=== PATIENT | female | born 1950 | race Caucasian/White ===

== ENCOUNTER 2018-03-11 13:24 | Emergency (ER) | payer MEDICARE, MEDICAID, SELFPAY ==
[2018-03-11 13:24] VITALS: BP 138/78; PULSE 125; RESP 16; TEMP 36.9; O2SAT 98; BMI 25.3
--- NOTE | 2018-03-11 13:36 | CT_ITS ---
STUDY: CT ABDOMEN AND PELVIS WITHOUT CONTRAST REASON FOR EXAM: Female, 67 years old. Lower abdominal and back pain. RADIATION DOSAGE (If Supplied By Facility): CTDIvol = ( 8.08 ) mGy, DLP = ( 363.48 ) mGycm TECHNIQUE: Transaxial images were obtained from the dome of the diaphragm to the symphysis pubis without oral contrast, and without intravenous contrast. Sagittal and coronal images were reconstructed. Individualized dose optimization techniques were used for this CT. COMPARISON: Comparison is made with prior study dated July 27, 2012. FINDINGS: The visualized lung bases are unremarkable. The visualized portions of the heart are within normal limits. There is a 1.8 cm x 1.7 cm cyst in the anterior superior aspect of the right lobe of the liver. This essentially unchanged. A similar-appearing cyst is also seen along the anterior aspect of the right lobe of the liver along its mid axis measuring 2.9 cm x 2.4 cm. There are surgical clips in the gallbladder fossa consistent with a prior cholecystectomy. Normal spleen. Normal pancreas. Small bilateral adrenal adenomas. Each measure approximately 8 mm. This is unchanged. Normal right kidney. Normal left kidney. There is a small hiatal hernia. Normal small intestine. There are multiple colonic diverticula consistent with diverticulosis. The patient is status post cholecystectomy. There is diffuse atherosclerotic calcification of the abdominal aorta, without a demonstrated aneurysm. Normal inferior vena cava. Normal retroperitoneum. Normal urinary bladder. There is a small umbilical hernia containing fat. Disc space narrowing and disc degeneration at the L5-S1 level. CT/Abdomen/Pelvis without Cont IMPRESSION: Stable hepatic cysts. Sigmoid diverticulosis with no evidence of diverticulitis at this time. Findings suggestive of small bilateral adrenal adenomas. Electronically Signed: Grabiel Lange MD at 15:02 EDT Tel [phone], Service support ,
--- NOTE | 2018-03-11 13:36 | EKG12_ITS ---
Test Reason : ABNL PAIN Blood Pressure : / mmHG Vent. Rate : 112 BPM Atrial Rate : 112 BPM P-R Int : 168 ms QRS Dur : 080 ms QT Int : 338 ms P-R-T Axes : 046 -05 030 degrees QTc Int : 461 ms Sinus tachycardia Nonspecific ST abnormality Abnormal ECG Confirmed by TUTU ROMAN, KUSHAL ([id number]), editor greeting card CUCA BARROS ([id number]) on 03/17/2018 2:49:27 PM Referred By: ANJUM Confirmed By:KUSHAL CAM MD
[2018-03-11] MEDS: 0.9% Normal Saline 1,000 ML 1000 ML IV (13:59)
[2018-03-11] MEDS: Ondansetron 4 MG/2 ML Vial IV ×2 (13:59→15:18)
[2018-03-11] MEDS: Morphine 4 MG/ML Syringe IV (13:59)
[2018-03-11 14:13] LABS: Absolute Lymphocyte Count 2.39 X10^3/ul (0.83-4.51); Absolute Neutrophil Count 4.1 X10^3/uL (2.0-7.7); Basophil# 0.03 X10^3/uL; Basophil% 0.4 % (0-1); Eosinophil# 0.24 X10^3/uL; Eosinophils% 3.3 % (0-5); Hematocrit 41.6 % (37-47); Hemoglobin 13.1 g/dl (12.0-15.0); Lymphocyte # 2.39 X10^3/ul (4.0); Lymphocyte % 32.4 % (19-41); Mean Corp Hgb Conc 31.5 g/gl (32-36); Mean Corpuscular Hgb 29.3 pg (27.0-32.0); Mean Corpuscular Volume 93.1 fL (81-99); Mean Platelet Vol. 9.3 fl (6.2-12.0); Monocyte# 0.63 X10^3/uL; Monocyte% 8.5 % (0-10); Neutrophil # 4.08 X10^3/uL (2.7-7.7); Neutrophil % 55.3 % (47-70); POSITIVE COUNT NO; POSITIVE DIFFERENTIAL NO; POSITIVE MORPHOLOGY NO; Platelet Count 294 K/mm3 (150-450); RBC Distribution Width CV 13.2 % (11.6-14.6); Red Blood Count 4.47 M/mm3 (4.2-5.4); White Blood Count 7.4 K/mm3 (4.4-11.0)
[2018-03-11 14:24] LABS: Anion Gap 9 (5-15); BUN 15 mg/dL (7-18); BUN/Creat Ratio 18.5 RATIO (10-20); Calcium,Total 9.5 mg/dL (8.5-10.1); Chloride 106 mmol/L (98-107); Creatinine, Serum 0.81 mg/dL (0.55-1.02); EST Glomerular Filtration Rate 75 mL/min (>60); Est Glom Filt Rate - Afr Amer 90 mL/min (>60); Estimated Creatinine Clearance 50.16 ml/min; Glucose 112 mg/dL (74-106); Potassium 3.8 mmol/L (3.5-5.1); Sodium Level 141 mmol/L (136-145)
[2018-03-11 14:25] VITALS: BP 163/93; PULSE 98; RESP 23; O2SAT 100
[2018-03-11 15:07] LABS: Bacteria 0 SEEN /hpf (None Seen); Mucous, Urine 0 SEEN /hpf (<or=2+); Red Blood Cells-Urine 0 SEEN /hpf (0-5); White Blood Cells 0 SEEN /hpf (0-5)
[2018-03-11 15:11] LABS: Color, Urine Yellow (Yellow); Glucose, Dipstick Normal (Normal); Ketone-Dipstick 15 mg/dl (Negative); Leukocyte Esterase-Dipstick Negative /ul (Negative); Nitrite-Dipstick Negative (Negative); Occult Blood-Urine Negative /ul (Negative); Protein-Dipstick Negative (Negative); Specific Gravity, Urine 1.015 (1.002-1.030); Urine Bilirubin Dipstick Negative (Negative); Urine Clarity Clear (Clear); Urine Urobilinogen Normal (Normal)
[2018-03-11 15:22] LABS: Squamous Epithelial Cells - UA 0-5 SEEN /hpf (5-10)
[2018-03-11 16:08] VITALS: BP 113/69; PULSE 85; RESP 12; O2SAT 98
--- NOTE | 2018-03-11 16:11 | ED.DCSUM_ITS ---
- ER Visit Summary Date of Service: 03/11/18 Chief Complaint: [] History of Present Illness: The patient is a 67 F [] Physical Examination: [] Test Results: [] Emergency Department Course and Treatment: [] Treatment Plan: [] Disposition: [] Impression: [] This note was generated with [employer] software. It may contain incorrect words, spelling, and punctuation that were not noted in review of the chart prior to signing <Naldo Blevins - Last Filed: 03/11/18 16:38> - ER Visit Summary Date of Service: 03/11/18 This patient was evaluated by Dr Blevins in the emergency department. This note was generated with [employer] software. It may contain incorrect words, spelling, and punctuation that were not noted in review of the chart prior to signing <Tita Stokes - Last Filed: 03/12/18 00:17> ED Disposition <Naldo Blevins - Last Filed: 03/11/18 16:38> <Tita Stokes - Last Filed: 03/12/18 00:17> - Plan for ED Patient: Disposition: Home or Assisted Living Chief Complaint: Abd Pain Instructions: ED Neck Back Pain General Prescriptions: Ondansetron [Zofran Odt] 4 mg PO Q8H PRN PRN #10 tablet PRN Reason: Nausea Hydrocodone/Acetaminophen [[place] 5-325 Tablet] 1 - 2 each PO 4X/DAY PRN PRN 5 Days #20 tablet PRN Reason: Pain Referrals: [facility] [Primary Care Provider] - 3-5 Days if not improving
[2018-03-11] MEDS: proMETHazine 25 MG/ML Syringe 6.25 MG IV (16:15)
[2018-03-11 16:43] VITALS: BP 123/70; PULSE 85; RESP 18; O2SAT 99
--- NOTE | 2018-03-12 10:58 | ED.DCSUM_ITS ---
- ER Visit Summary Date of Service: 03/12/18 Chief Complaint: Back and pelvic pain History of Present Illness: The patient is a 67 F who [facility]. She reports that 10 days ago she was cleaning her kitchen and leaned forward and pain began in her lower back. She describes it as a burning sharp pain with radiation into her buttocks. She reports that over the next 10 days she is also developed suprapubic pain. She states pain is 10 out of 10 at worst and 7 out of 10 currently. Is worsened by movement and relieved by remaining still and ice. She denies any nausea or vomiting. Where she has chronic diarrhea that is unchanged and she has not had this today. No melena or hematochezia. No dysuria or frequency. No fever or chills. Patient denies any radiation of the pain into her legs. No groin numbness. No problems with her bowels or her bladder. No recent trauma. No fall, MVA, or change in activity. Physical Examination: Vitals: Stable. Afebrile. General: Well-nourished and well-developed. Head: Normocephalic atraumatic. Neck: Supple, no lymphadenopathy. No JVD. Nontender. Cardiovascular: Regular rate and rhythm. No murmurs. Respiratory: No respiratory distress. Clear to auscultation bilaterally. Abdominal: Soft, moderate suprapubic tenderness to palpation nondistended, normal bowel sounds. No guarding, rebound, or peritoneal signs. Back: Moderate tenderness palpation over the lumbar spine and paraspinous musculature in the lumbar region bilaterally. She is a negative straight leg raise bilaterally. 5 out of 5 dorsiflexion, plantarflexion, extensor hallucis longus bilaterally. Normal sensation to light touch. Extremities: Nontender, no edema. Skin: Normal color, no rash. Neurologic: Alert and oriented ?3. Cranial nerves II through XII are intact. Normal strength and sensation. Psych: Normal affect. Test Results: EKG is sinus tach 112 no acute changes. UA is negative. Chem-7 is more for glucose 112. CBC is normal. CT flank shows disc space narrowing and degenerative changes at L5/S1. Diverticulosis. Small bilateral adrenal adenomas that are unchanged since 2011. Emergency Department Course and Treatment: Patient was given a dose of morphine and Zofran IV. She became very nauseated from the morphine. She was also given Phenergan IV. Treatment Plan: Patient will be discharged on Zofran, [place], and [place]. Instructed to follow-up the [facility] in 3-5 days if not improving. Return to the emergency department for any worsening symptoms. Disposition: To home in improved and stable condition. Impression: 1. Back pain. 2. Abdominal pain, uncertain cause. This note was generated with [employer] dictation software. It may contain incorrect words, spelling, and punctuation that were not noted in review of the chart prior to signing ED Disposition - Plan for ED Patient: Disposition: Home or Assisted Living Chief Complaint: Abd Pain Instructions: ED Neck Back Pain General Prescriptions: Ondansetron [Zofran Odt] 4 mg PO Q8H PRN PRN #10 tablet PRN Reason: Nausea Hydrocodone/Acetaminophen [[place] 5-325 Tablet] 1 - 2 each PO 4X/DAY PRN PRN 5 Days #20 tablet PRN Reason: Pain [facility] - 3-5 Days if not improving
== END 2018-03-11 16:53 | disposition home or self-care (01) ==
LOC: ED 14:07
PROVIDERS: Emergency Provider Emergency Medicine
DX: M54.9 Dorsalgia, unspecified (principal); R10.9 Unspecified abdominal pain; R11.0 Nausea; T40.2X5A Adverse effect of other opioids, initial encounter; Y92.239 Unspecified place in hospital as the place of occurrence of the external cause; R19.7 Diarrhea, unspecified; E03.9 Hypothyroidism, unspecified; K58.9 Irritable bowel syndrome, unspecified; D35.02 Benign neoplasm of left adrenal gland; D35.01 Benign neoplasm of right adrenal gland; Z79.899 Other long term (current) drug therapy; Z87.19 Personal history of other diseases of the digestive system
CPT/HCPCS: 74176; 80048; 81001; 85025; 93005; 96361; 96374; 96375; 96376; 99284; J7030; A4216; J2405

== ENCOUNTER → 2020-12-11 09:06 | Outpatient (CLI) | payer MEDICARE, MEDICAID, SELFPAY ==
--- NOTE | 2020-12-11 09:11 | BI_ITS ---
MAMMOGRAPHY - BILATERAL DIAGNOSTIC REASON FOR EXAM: Female, 69 years old. Pain in the lower outer quadrant of the left breast. Occasional right lateral breast pain. PERTINENT HISTORY: Non-contributory. TECHNIQUE: Digital bilateral breast michael (3D mammographic acquisition) in the CC and MLO projections. 2-D mediolateral oblique (MLO) and craniocaudad (CC) views of both breasts were obtained. CAD: Full Field Digital Mammography with Computer Added Detection was performed. COMPARISON: Comparison is made with prior study dated 09/25/2016 and 11/26/2013. FINDINGS: Breast Composition: There are scattered areas of fibroglandular density. There are no dominant masses or suspicious calcifications. No other significant abnormalities are identified. There has been no significant change since the prior study. BI/DIAG MAMM W/CAD, BILAT IMPRESSION: Stable bilateral diagnostic mammogram. With the patient''s history of pain in the left breast, correlation with ultrasound is recommended. ASSESSMENT CATEGORY: BIRADS Category 0: Incomplete. Need additional imaging evaluation. A letter regarding these results will be sent to the patient by the facility within 30 days. Approximately 10% of breast cancers are not detected by mammography. A normal mammogram should not delay biopsy of a clinically suspicious abnormality. Electronically Signed: Grabiel Lange MD at 13:37 EDT , Service support ,
--- NOTE | 2020-12-11 09:39 | US_ITS ---
STUDY: ULTRASOUND BREAST - LEFT REASON FOR EXAM: Female, 69 years old. Left axillary breast pain. TECHNIQUE: Axial and longitudinal images of the LEFT breast were performed with a high resolution ultrasound transducer. # OF IMAGES: 44 COMPARISON: Comparison is made with prior mammogram done earlier in the day. FINDINGS: LEFT Breast: There are 2 lymph nodes are seen in the right axillary region. The larger lymph node measures 1.7 cm x 1.7 cm x 0.9 cm. US/Breast Limited Unilateral IMPRESSION: 2 lymph nodes are seen in the left axillary region. The largest lymph node measures 1.7 cm by 1.7 cm x 0.9 cm. ASSESSMENT CATEGORY: BIRADS Category 2: Benign. A letter regarding these results will be sent to the patient by the facility within 30 days. Electronically Signed: Grabiel Lange MD at 14:23 EDT , Service support ,
== END ==
DX: N64.4 Mastodynia (principal)
CPT/HCPCS: 76642; 77062; 77066; G0279

== ENCOUNTER → 2020-12-12 07:47 | Outpatient (CLI) | payer MEDICARE, MEDICAID, SELFPAY ==
[2020-12-14 16:09] LABS: Alkaline Phosphatase, Serum 140 IU/L (39-117); Bone Fraction 50 % (14-68); Liver Fraction 50 % (18-85)
[2020-12-15 13:08] LABS: Intestinal Fraction 0 % (0-18)
== END ==
DX: R73.03 Prediabetes (principal); E78.5 Hyperlipidemia, unspecified
CPT/HCPCS: 36415; 83036; 84075; 84080

== ENCOUNTER 2021-05-08 10:59 | Emergency (ER) | payer MEDICARE, MEDICAID, SELFPAY ==
[2021-05-08 11:01] VITALS: BP 142/83; PULSE 109; RESP 15; TEMP 35.9; O2SAT 99; BMI 26.5
--- NOTE | 2021-05-08 11:44 | CT_ITS ---
STUDY: CT ABDOMEN AND PELVIS WITH CONTRAST REASON FOR EXAM: Female, 70 years old. One month history of diffuse abdominal pain. RADIATION DOSAGE (If Supplied By Facility): CTDIvol = ( 10.96 ) mGy, DLP = ( 545.77 ) mGycm TECHNIQUE: Transaxial images were obtained from the dome of the diaphragm to the symphysis pubis without oral contrast. IV 100mL Isovue-300 was administered. Sagittal and coronal images were reconstructed. Individualized dose optimization techniques were used for this CT. COMPARISON: Comparison is made with prior study dated 03/11/2018. FINDINGS: The visualized lung bases are unremarkable. The visualized portions of the heart are within normal limits. 1.8 cm x 1.7 cm cyst in the anterior superior aspect of the right lobe of the liver. There is also evidence of a 2.9 sono by 2.9 cm cyst in the anterior midportion of the right lobe of the liver. There are surgical clips in the gallbladder fossa consistent with a prior cholecystectomy. Normal spleen. Normal pancreas. Stable small bilateral adrenal adenomas. Normal right kidney. Normal left kidney. Normal visualized stomach. Normal small intestine. There are multiple colonic diverticula consistent with diverticulosis. The appendix is visualized and appears normal. There is scattered atherosclerotic calcification of the abdominal aorta, without a demonstrated aneurysm. Normal inferior vena cava. Normal retroperitoneum. Normal urinary bladder. There is a small umbilical hernia containing fat. There are mild degenerative changes of the visualized lumbar spine. CT/Abdomen/Pelvis W IV Cont ONLY IMPRESSION: Stable hepatic cysts. Sigmoid diverticulosis. Electronically Signed: Grabiel Lange MD at 13:41 EDT , Service support ,
--- NOTE | 2021-05-08 11:45 | ED.VIS.GI ---
HPI HPI - GI History of Present Illness Chief Complaint: Abd Pain Informant: patient Abdominal Pain/Flank Pain Onset: Month(s) Context: Gradual Onset Timing: Intermittent Quality: Aching and Cramping Location: Diffuse Current Severity: Mild Maximum Severity: Mild Nausea/Vomiting/Emesis GI Symptom: Negative for Nausea and Vomiting Diarrhea/Melena/Hematochezia GI Symptom: Negative for Diarrhea, Melena and Hematochezia Associated Symptoms Associated Symptoms: Negative for Dysuria, Frequency and Hematuria Narrative Narrative: 70-year-old female history of irritable bowel. Prior cholecystectomy and one tube and one ovary removed. Patient states for the last month she has had diffuse abdominal pain. Worse with eating. Constipation that she takes laxatives for. Denies any dysuria. No fever or chills. No weight loss. Prior similar symptoms: Yes PFSH [facility] Medical History (Updated 05/08/21 @ 13:[address] Ramiro Marquez MD) Cholecystectomy planned Home Medications dicyclomine 20 mg PO DAILY 03/11/18 [History Last Taken Unknown] ergocalciferol (vitamin D2) [Vitamin D] 50,000 unit PO Q7D 03/11/18 [History Last Taken Unknown] hydrocodone-acetaminophen [[place] 5-325 Tablet] 1 - 2 ea PO 4X/DAY PRN PRN 5 Days #20 tab 03/11/18 [Rx Last Taken Unknown] rdagr-pr-[id number]-zva-sxp-gsqqjec-ast [Krill Oil 500 mg Softgel] 1 ea PO DAILY 03/11/18 [History Last Taken Unknown] levothyroxine 50 mcg PO DAILY 03/11/18 [History Last Taken Unknown] ondansetron 4 mg PO Q8H PRN PRN #10 tab 03/11/18 [Rx Last Taken Unknown] psyllium husk [Fiber] 0.4 g PO DAILY 03/11/18 [History Last Taken Unknown] Allergy/AdvReac Type Severity Reaction Status Date / Time diphenhydramine HCl Allergy Anaphylaxis Verified 05/08/21 11:00 [From Benadryl] Penicillins [PCN] Allergy Other Verified 05/08/21 11:01 morphine AdvReac Other Verified 05/08/21 11:01 Social History Smoking Status: Never smoker ROS ROS ED ROS Narrative Abdominal pain, constipation. Review of Systems ROS Unobtainable: Denies due to encephalopathy Constitutional Constitutional ED: Denies chills or fever(s) ENT ENT ED: Denies ear pain Cardiovascular Cardiovascular: Denies chest pain Respiratory/Chest Respiratory/Chest: Denies cough or dyspnea Gastrointestinal Gastrointestinal: Reports abdominal pain and constipation; Denies diarrhea, melena, nausea or vomiting Genitourinary Genitourinary ED: Denies dysuria or hematuria Musculoskeletal Musculoskeletal: Denies myalgias Integumentary Denies rash Neurologic Neurologic: Denies headache(s) Psychiatric Psychiatric: Denies depression Endocrine Endocrinology: Denies polyuria Hematologic/Lymphatic Hematologic/Lymphatic: Denies easy bruising Allergic/Immunologic Allergic/Immunologic ED: Denies urticaria EXAM Physical Exam Narrative Exam Narrative: Well-appearing older female no acute distress. Vital signs stable afebrile. Abdomen soft nondistended normal bowel sounds no peritoneal signs. Moving all 4 extremities. No edema. Lungs are clear. Heart regular rate and rhythm. Const Vital Signs: 05/08/21 11:01 Temperature 96.7 F L Temperature Source Temporal Pulse Rate 109 H Respiratory Rate 15 Blood Pressure 142/83 H Blood Pressure Mean 102 Pulse Ox 99 Oxygen Delivery Method Room Air Positive well nourished and well developed; Negative for obese, cachectic, contractures or unkempt General Appearance ED: well developed and NAD; Negative for unkempt, cachectic, contractures or pallor Nutritional Appearance: Negative for cachectic or obese HEENT Reports moist mucous membranes normocephalic; Negative for trauma or tenderness Eyes PERRL and EOMs intact bilaterally Neck no lymphadenopathy, supple and no JVD General: Negative for tenderness Resp normal respiratory effort and clear to auscultation bilaterally Auscultation: Negative for rales, rhonchi or wheezes Cardio regular rate, regular rhythm, S1 normal heart sound, S2 normal heart sound and no murmurs GI non-distended and no masses; Negative for non-tender Inspection: Negative for abdominal distention Auscultation: normoactive bowel sounds; Negative for hyperactive bowel sounds or hypoactive bowel sounds Palpation: soft and tender; Negative for guarding, rigid or rebound tenderness present Back/Spine no CVA tenderness Extremity full ROM General Extremety ED: Negative for edema or tenderness General Extremity: Negative for edema Neuro moves all extremities Sensorium / Orientation: alert, oriented to person, oriented to place and oriented to time Motor Exam: strength 5/5 throughout Psych mental status grossly normal Appearance: Negative for unkempt Skin no wounds General Skin Exam: Negative for jaundice or pallor Lesions: no lesions Rashes: no rashes MDM MDM MDM Narrative Medical decision making narrative: Female history of irritable bowel with diffuse abdominal pain. CAT scan labs pending. Exam benign. Repeat exam patient is doing well at 1:48 PM. She and I went over test results. She will be discharged home. Outpatient follow-up. Lab Data Attestation: I reviewed the patient's lab results. Lab results narrative: White count of 6. Hemoglobin 14. Electrolytes show a gap of 3 normal creatinine. Normal liver enzymes. Alk phos elevated at 142. Lipase normal at 134. UA normal no signs of infection. No white cells. No nitrates nor bacteria. CAT scan of the abdomen pelvis showed chronic findings nothing acute. Labs: Laboratory Results - last 24 hr 05/08/21 05/08/21 05/08/21 12:20 12:20 12:40 WBC 6.3 RBC 4.77 Hgb 14.1 Hct 44.5 MCV 93.3 MCH 29.6 MCHC 31.7 L RDW Std Deviation 43.8 RDW Coeff of Rea 12.7 Plt Count 297 MPV 9.0 Immature Gran % (Auto) 0.600 Neut % (Auto) 63.2 Lymph % (Auto) 26.3 [place] % (Auto) 7.7 Eos % (Auto) 1.7 Baso % (Auto) 0.5 Absolute Neuts (auto) 4.0 Absolute Lymphs (auto) 1.67 Nucleated RBC % 0 Sodium 141 Potassium 4.0 Chloride 107 Carbon Dioxide 31.0 Anion Gap 3 L BUN 7 Creatinine 0.61 Estim Creat Clear Calc 37.06 Est GFR (MDRD) Af Amer 124 Est GFR (MDRD) Non-Af 102 BUN/Creatinine Ratio 11.4 Glucose 99 Calcium 9.8 Total Bilirubin 0.40 AST 17 ALT 23 Alkaline Phosphatase 142 H Total Protein 8.0 Albumin 3.7 Globulin 4.3 H Albumin/Globulin Ratio 0.9 Lipase 134 Urine Color Straw Urine Clarity Clear Urine pH 8.0 Ur Specific [place] 1.010 Urine Protein Negative Urine Glucose (UA) Normal Urine Ketones Negative Urine Occult Blood Negative Urine Nitrite Negative Urine Bilirubin Negative Urine Urobilinogen Normal Ur Leukocyte Esterase Negative Urine RBC 0 SEEN Urine WBC 0 SEEN Ur Squamous Epith Cells 0-5 SEEN Urine Bacteria 0 SEEN Urine Mucus 0 SEEN Radiography Diagnostic Testing: Radiology Impression Abdomen/Pelvis CT 05/08/21 11:44 IMPRESSION: Stable hepatic cysts. Sigmoid diverticulosis. Electronically Signed: Grabiel Lange MD at 13:41 EDT , Service support , Discharge Plan Triage Chief Complaint: Abd Pain ED Provider: Ramiro Marquez Dx/Rx/DC Orders Clinical Impression: History of irritable colon Instructions: ED Irritable Bowel Syndrome Prescriptions: No Action dicyclomine 20 MG tablet 20 mg PO DAILY RF: 0 levothyroxine 50 MCG tablet 50 mcg PO DAILY RF: 0 ergocalciferol (vitamin D2) [Vitamin D2] 50,000 UNIT capsule 50,000 unit PO Q7D RF: 0 zxrcj-id-3-mqr-mqu-fxjvdnz-ast [krill oil] 1 EACH capsule 1 ea PO DAILY RF: 0 psyllium husk [Fiber (psyllium husk)] 0.4 GM capsule 0.4 g PO DAILY RF: 0 hydrocodone-acetaminophen [[place]] 1 EACH tablet 1 - 2 ea PO 4X/DAY PRN PRN (Reason: Pain) 5 Days Qty: 20 RF: 0 ondansetron 4 MG tablet 4 mg PO Q8H PRN PRN (Reason: Nausea) Qty: 10 RF: 0 Primary Care Provider: Anay Guzmán Referrals: [facility] Anay Ortiz [Primary Care Provider] - 1 Week if not improving Activity Restrictions/Additional Instructions: Plenty of fluids and rest. Tylenol for pain. Plenty of fiber to help decrease the constipation. Your test today were unremarkable as was your CAT scan. Follow-up with your primary care provider as needed. Disposition Disposition: Home, Self Care
[2021-05-08 12:31] LABS: Absolute Lymphocyte Count 1.67 X10^3/uL (0.83-4.51); Basophil# 0.03 X10^3/uL; Basophil% 0.5 % (0-1); Eosinophil# 0.11 X10^3/uL; Eosinophils% 1.7 % (0-5); Hematocrit 44.5 % (37-47); Hemoglobin 14.1 g/dL (12.0-15.0); Lymphocyte # 1.67 X10^3/ul (0.83-4.51); Lymphocyte % 26.3 % (19-41); Mean Corp Hgb Conc 31.7 g/dL (32-36); Mean Corpuscular Hgb 29.6 pg (27.0-32.0); Mean Corpuscular Volume 93.3 fL (81-99); Monocyte# 0.49 X10^3/uL; Monocyte% 7.7 % (0-10); NRBC Flagged by Analyzer 0 % (0-5); Neutrophil % 63.2 % (47-70); Platelet Count 297 K/mm3 (150-450); RBC Distribution Width CV 12.7 % (11.6-14.6); RBC Distribution Width SD 43.8 fl (35.1-43.9); Red Blood Count 4.77 M/mm3 (4.2-5.4); White Blood Count 6.3 K/mm3 (4.4-11.0)
[2021-05-08] MEDS: 0.9% Normal Saline 1,000 ML 1000 ML IV (12:39)
[2021-05-08 12:45] LABS: Bacteria 0 SEEN /hpf (None Seen); Mucous, Urine 0 SEEN /hpf (<or=2+); Red Blood Cells-Urine 0 SEEN /hpf (0-5); White Blood Cells 0 SEEN /hpf (0-5)
[2021-05-08 12:46] LABS: ALB/GLOB Ratio 0.9 RATIO (0.9-2.4); AST(SGOT) 17 U/L (15-37); Alanine Aminotransfer ALT/SGPT 23 U/L (13-56); Albumin, Serum 3.7 g/dL (3.2-5.0); Alkaline Phosphatase 142 U/L (45-117); Anion Gap 3 (5-15); BUN 7 mg/dL (7-18); BUN/Creat Ratio 11.4 RATIO (10-20); Calcium,Total 9.8 mg/dL (8.5-10.1); Chloride 107 mmol/L (98-107); Creatinine, Serum 0.61 mg/dL (0.55-1.02); EST Glomerular Filtration Rate 102 mL/min (>60); Est Glom Filt Rate - Afr Amer 124 mL/min (>60); Estimated Creatinine Clearance 37.06 ml/min; Globulin 4.3 g/dL (2.2-4.2); Glucose 99 mg/dL (74-106); Lipase 134 U/L (73-393); Sodium Level 141 mmol/L (136-145)
[2021-05-08 12:47] LABS: Color, Urine Straw (Yellow); Glucose, Dipstick Normal (Normal); Ketone-Dipstick Negative (Negative); Leukocyte Esterase-Dipstick Negative /ul (Negative); Nitrite-Dipstick Negative (Negative); Occult Blood-Urine Negative /ul (Negative); Protein-Dipstick Negative (Negative); Urine Bilirubin Dipstick Negative (Negative); Urine Clarity Clear (Clear); Urine Urobilinogen Normal (Normal)
[2021-05-08 12:58] LABS: Squamous Epithelial Cells - UA 0-5 SEEN /hpf (5-10)
== END 2021-05-08 13:59 | disposition home or self-care (01) ==
PROVIDERS: Emergency Provider Emergency Medicine
DX: Z87.19 Personal history of other diseases of the digestive system (principal); R10.9 Unspecified abdominal pain
CPT/HCPCS: 74177; 80053; 81001; 83690; 85025; 99283; J7030; Q9967

== ENCOUNTER 2021-06-09 11:22 | Observation (INO) | payer MEDICARE, MEDICAID, SELFPAY ==
[2021-06-09] VITALS (20 sets, daily range): BP systolic 119–131; BP diastolic 60–83; PULSE 69–122; RESP 16–23; TEMP 36.2–37.7; O2SAT 92–100; BMI 25.4; BMI 24.9
--- NOTE | 2021-06-09 11:43 | EKG12_ITS ---
Test Reason : Blood Pressure : / mmHG Vent. Rate : 141 BPM Atrial Rate : 153 BPM P-R Int : 000 ms QRS Dur : 078 ms QT Int : 298 ms P-R-T Axes : 000 -10 -61 degrees QTc Int : 456 ms Atrial fibrillation with premature ventricular or aberrantly conducted complexes Nonspecific ST and T wave abnormality , probably digitalis effect Abnormal ECG Confirmed by TUTU ROMAN, KUSHAL ([id number]), news video editor DARIN BALES ([id number]) on 06/12/2021 9:40:21 AM Referred By: BRODIE Confirmed By:KUSHAL CAM MD
--- NOTE | 2021-06-09 11:45 | EDS_ITS ---
HPI History of Present Illness Chief Complaint: Shortness of Breath Informant: patient Narrative Narrative: Patient presents with multiple complaints and not feeling well. This started all about 2 weeks ago. She started with some aches and headaches. She had coughing. She has never had sputum production. She states her appetite was down. She lost her taste and smell but feels that those are actually coming back now. She has generalized malaise. What brought her in today is that her heart rate is going up and down and she has generalized malaise. Her symptoms are not getting better. She has not had chest pain. She gets some abdominal pain off and on but she has a long history of irritable bowel syndrome and this is similar to that. She is not vomiting. She is not having diarrhea. Nothing is really making her symptoms better or worse. She has not been seen for these. She is taking her Synthroid and it was last checked about 2 months ago she believes. Past medical history: Hypothyroidism, irritable bowel syndrome Medications: Levothyroxine Allergies: Benadryl, penicillins and morphine Surgeries: Cholecystectomy appendectomy and unilateral salpingo-oophorectomy Non-smoker lives independently [facility] Medical History (Updated 06/09/21 @ 14:[address] Venancio Allen MD) Cholecystectomy planned Hypothyroidism Home Medications dicyclomine 20 mg PO DAILY 03/11/18 [History Last Taken Unknown] ergocalciferol (vitamin D2) [Vitamin D] 50,000 unit PO Q7D 03/11/18 [History Last Taken Unknown] hydrocodone-acetaminophen [[place] 5-325 Tablet] 1 - 2 ea PO 4X/DAY PRN PRN 5 Days #20 tab 03/11/18 [Rx Last Taken Unknown] mnavt-zm-[id number]-qrq-kgg-hjodxxe-ast [Krill Oil 500 mg Softgel] 1 ea PO DAILY 03/11/18 [History Last Taken Unknown] levothyroxine 50 mcg PO DAILY 03/11/18 [History Last Taken Unknown] ondansetron 4 mg PO Q8H PRN PRN #10 tab 03/11/18 [Rx Last Taken Unknown] psyllium husk [Fiber] 0.4 g PO DAILY 03/11/18 [History Last Taken Unknown] Allergy/AdvReac Type Severity Reaction Status Date / Time diphenhydramine HCl Allergy Anaphylaxis Verified 05/08/21 11:00 [From Benadryl] Penicillins [PCN] Allergy Other Verified 05/08/21 11:01 morphine AdvReac Other Verified 05/08/21 11:01 Social History Smoking Status: Never smoker ROS ROS ED Constitutional Constitutional ED: Reports chills; Denies weight loss Eyes Eyes: Denies blurry vision or change in vision ENT ENT ED: Reports rhinorrhea; Denies ear pain or sore throat Cardiovascular Cardiovascular: Reports palpitations and racing heartbeat; Denies chest pain Respiratory/Chest Respiratory/Chest: Reports cough and dyspnea; Denies sputum Gastrointestinal Gastrointestinal: Reports abdominal pain; Denies diarrhea, nausea or vomiting Genitourinary Genitourinary ED: Denies dysuria or hematuria Musculoskeletal Musculoskeletal: Reports myalgias Integumentary Denies rash Neurologic Neurologic: Reports headache(s); Denies paresthesias or weakness Endocrine Endocrinology: Denies polydipsia or polyuria Hematologic/Lymphatic Hematologic/Lymphatic: Denies easy bleeding or easy bruising Allergic/Immunologic Allergic/Immunologic ED: Denies urticaria EXAM Physical Exam Const Vital Signs: 06/09/21 11:23 06/09/21 11:27 06/09/21 12:04 Temperature 97.2 F L 97.2 F L Temperature Source Temporal Temporal Pulse Rate 122 H 96 Respiratory Rate 18 16 Respiratory Effort Respiratory Depth Respiratory Pattern Blood Pressure 122/67 H 119/83 H Blood Pressure Mean 85 95 Pulse Ox 92 96 96 Oxygen Delivery Method Room Air Room Air Room Air 06/09/21 12:06 06/09/21 12:12 06/09/21 12:24 Temperature Temperature Source Pulse Rate 96 96 Respiratory Rate 23 H 16 Respiratory Effort Normal Non-Labored Respiratory Depth Normal Respiratory Pattern Normal Blood Pressure 119/83 H 119/83 H Blood Pressure Mean 95 95 Pulse Ox 94 96 Oxygen Delivery Method Room Air Room Air Room Air 06/09/21 12:27 06/09/21 13:16 06/09/21 13:30 Temperature 97.2 F L Temperature Source Temporal Pulse Rate 96 108 H 95 Respiratory Rate 16 19 H 20 H Respiratory Effort Respiratory Depth Respiratory Pattern Blood Pressure 119/83 H 120/83 H 120/83 H Blood Pressure Mean 95 95 95 Pulse Ox 96 100 95 Oxygen Delivery Method Room Air Room Air Room Air Positive well nourished and well developed General Appearance ED: well developed and NAD HEENT Reports dry mucous membranes Mouth ED: Yes dry mucous membranes Mouth: dry mucous membranes Eyes General Eye ED: Negative for pale conjunctiva or scleral icterus Neck no meningeal signs and no JVD Resp normal respiratory effort Resp Narrative: Patient does have some coarse breath sounds bilaterally. No wheezing. Auscultation: rhonchi Cardio Cardio Narrative: Patient is to be in atrial fibrillation with rapid response. Her rate varies between about 110 and 150. Rate: tachycardic Rhythm: abnormal rhythm GI non-tender, non-distended and no masses Auscultation: normoactive bowel sounds Palpation: soft Back/Spine no CVA tenderness Extremity normal to inspection Extremity Narrative: Patient also denies any recent travel, surgery, immobilization, personal or family history of DVT or PE. General Extremety ED: Negative for edema or tenderness General Extremity: Negative for edema Neuro oriented x3 Sensorium / Orientation: alert Psych mental status grossly normal Skin Lesions: no lesions Rashes: no rashes MDM MDM MDM Narrative Medical decision making narrative: Patient's blood work shows essentially normal CBC. Electrolytes show minimally low potassium. I will replace this orally. TSH was just minimally elevated. I did a CT scan of her chest with her dyspnea new onset A. fib recent and positive Covid. This did not show pulmonary embolus. With her new onset A. fib, rapid ventricular rates she will be kept in the hospital. Her rate actually came down before we gave metoprolol. I discussed case with hospitalist. Lab Data Attestation: I reviewed the patient's lab results. Labs: Laboratory Results - last 24 hr 06/09/21 06/09/21 11:37 11:37 WBC 9.2 RBC 4.70 Hgb 13.5 Hct 43.4 MCV 92.3 MCH 28.7 MCHC 31.1 L RDW Std Deviation 44.1 H RDW Coeff of Rea 13.0 Plt Count 347 MPV 9.3 Immature Gran % (Auto) 1.300 H Neut % (Auto) 80.5 H Lymph % (Auto) 8.7 L [place] % (Auto) 9.1 Eos % (Auto) 0.2 Baso % (Auto) 0.2 Absolute Neuts (auto) 7.4 Absolute Lymphs (auto) 0.80 L Nucleated RBC % 0 Sodium 139 Potassium 3.0 L Chloride 99 Carbon Dioxide 33.0 H Anion Gap 7 BUN 10 Creatinine 0.77 Estim Creat Clear Calc 38.94 Est GFR (MDRD) Af Amer 95 Est GFR (MDRD) Non-Af 78 BUN/Creatinine Ratio 13.0 Glucose 123 H Calcium 9.1 Magnesium 1.9 Troponin I High Sens 6 TSH 4.09 H Radiography Diagnostic Testing: Clinical Impression(s) from Imaging Studies Chest X-Ray 06/09/21 12:21 IMPRESSION: Bilateral pneumonia. Electronically Signed: Elver Simpson MD at 12:56 EDT Tel , Service support , Chest CTA 06/09/21 12:38 IMPRESSION: 1. No CT evidence of pulmonary embolism. 2. Bilateral subsegmental atelectasis or pneumonitis. Commonly reported imaging features of Covid 19 pneumonia are present. Other processes such as influenza pneumonia and organizing pneumonia from drug toxicity or connective tissue disease can cause a similar imaging pattern Electronically Signed: Elver Simpson MD at 13:38 EDT Tel , Service support , EKG Initial EKG: Comments: EKG done for tachycardia and read by me shows atrial fibrillatio n with a rate of 141. No ventricular ectopy. There are some mild diffuse nonspecific ST and T wave changes. Some of these were seen on prior EKG even though she did not have A. fib at that time. No indication of ST elevation [place]. QRS duration and QTc are normal. This overall is a change with a new rhythm since 11 March 2018. Discharge Plan Triage Chief Complaint: Shortness of Breath ED Provider: Venancio Allen Dx/Rx/DC Orders Clinical Impression: Pneumonia due to 2019 novel coronavirus, Atrial fibrillation, new onset Prescriptions: No Action dicyclomine 20 MG tablet 20 mg PO DAILY RF: 0 levothyroxine 50 MCG tablet 50 mcg PO DAILY RF: 0 ergocalciferol (vitamin D2) [Vitamin D2] 50,000 UNIT capsule 50,000 unit PO Q7D RF: 0 vmwfi-di-9-avd-aam-bztepxe-ast [krill oil] 1 EACH capsule 1 ea PO DAILY RF: 0 psyllium husk [Fiber (psyllium husk)] 0.4 GM capsule 0.4 g PO DAILY RF: 0 hydrocodone-acetaminophen [[place]] 1 EACH tablet 1 - 2 ea PO 4X/DAY PRN PRN (Reason: Pain) 5 Days Qty: 20 RF: 0 ondansetron 4 MG tablet 4 mg PO Q8H PRN PRN (Reason: Nausea) Qty: 10 RF: 0 Primary Care Provider: [facility] Anay Ortiz Referrals: [facility] Anay Ortiz [Primary Care Provider] - Disposition Disposition: Acute Care Hospital [facility]
[2021-06-09 12:11] LABS: Absolute Neutrophil Count 7.4 X10^3/uL (2.0-7.7); Basophil# 0.02 X10^3/uL; Basophil% 0.2 % (0-1); Eosinophil# 0.02 X10^3/uL; Eosinophils% 0.2 % (0-5); Hematocrit 43.4 % (37-47); Hemoglobin 13.5 g/dL (12.0-15.0); Lymphocyte % 8.7 % (19-41); Mean Corp Hgb Conc 31.1 g/dL (32-36); Mean Corpuscular Hgb 28.7 pg (27.0-32.0); Mean Corpuscular Volume 92.3 fL (81-99); Mean Platelet Vol. 9.3 fl (6.2-12.0); Monocyte# 0.84 X10^3/uL; Monocyte% 9.1 % (0-10); NRBC Flagged by Analyzer 0 % (0-5); Neutrophil # 7.42 X10^3/uL (2.7-7.7); Neutrophil % 80.5 % (47-70); Platelet Count 347 K/mm3 (150-450); RBC Distribution Width SD 44.1 fl (35.1-43.9); White Blood Count 9.2 K/mm3 (4.4-11.0)
--- NOTE | 2021-06-09 12:21 | RAD_ITS ---
STUDY: X-RAY CHEST REASON FOR EXAM: Female, 70 years old. chest pain TECHNIQUE: Single AP portable view of the chest. COMPARISON: None. FINDINGS: Patchy alveolar opacities in both lungs consistent with bilateral pneumonia. There is no demonstrated pleural abnormality. Normal size heart. Normal mediastinum and sophie. Normal visualized pulmonary arteries. Normal visualized aortic arch and descending thoracic aorta. Normal visualized thoracic spine. Normal visualized ribs, clavicles, and shoulders. There is no demonstrated abnormality of the visualized soft tissue structures of the upper abdomen. RAD/Chest 1 View (Portable) IMPRESSION: Bilateral pneumonia. Electronically Signed: Elver Simpson MD at 12:56 EDT Tel , Service support ,
[2021-06-09 12:31] LABS: Anion Gap 7 (5-15); BUN 10 mg/dL (7-18); Calcium,Total 9.1 mg/dL (8.5-10.1); Chloride 99 mmol/L (98-107); Creatinine, Serum 0.77 mg/dL (0.55-1.02); EST Glomerular Filtration Rate 78 mL/min (>60); Est Glom Filt Rate - Afr Amer 95 mL/min (>60); Estimated Creatinine Clearance 38.94 ml/min; Glucose 123 mg/dL (74-106); Magnesium 1.9 mg/dL (1.6-2.6); Sodium Level 139 mmol/L (136-145); Thyroid Stim Hormone (TSH) 4.09 uIU/mL (0.358-3.74); Troponin-I HS 6 pg/mL (3.0-54.0)
--- NOTE | 2021-06-09 12:38 | CT_ITS ---
STUDY: CTA CHEST REASON FOR EXAM: Female, 70 years old. SOB, tachycardia RADIATION DOSAGE (If Supplied By Facility): CTDIvol = ( 6.17 ) mGy, DLP = ( 143.33 ) mGycm TECHNIQUE: The examination was performed with the intravenous administration of IV 100mL Isovue-370. Post-processing of the angiographic images was performed, with multiplanar reformation and 3D reconstruction. Individualized dose optimization techniques were used for this CT. COMPARISON: Chest x-ray earlier today FINDINGS: Normal enhancement of the main pulmonary artery and right and left pulmonary arteries. Normal enhancement of the bilateral peripheral pulmonary arteries. There is no demonstrated pulmonary embolism. Normal thoracic aorta and visualized great vessels. There is no demonstrated aortic dissection. Normal heart and pericardium. Normal mediastinum. Normal hilar regions. Normal visualized trachea and bronchi. The lungs are well expanded. Bilateral peripheral patchy groundglass opacities consistent with subsegmental atelectasis or pneumonitis.. Normal pleura. Normal chest wall structures. Normal osseous structures. Status post cholecystectomy. 3 cm cyst in the medial segment left lobe of the liver. CT/CTA Chest W/WO Contrast IMPRESSION: 1. No CT evidence of pulmonary embolism. 2. Bilateral subsegmental atelectasis or pneumonitis. Commonly reported imaging features of Covid 19 pneumonia are present. Other processes such as influenza pneumonia and organizing pneumonia from drug toxicity or connective tissue disease can cause a similar imaging pattern Electronically Signed: Elver Simpson MD at 13:38 EDT Tel , Service support ,
--- NOTE | 2021-06-09 13:59 | HP.PCM.HOS_ITS ---
HPI - General General Date of Admission: 06/09/21 Date of Service: 06/09/21 Chief Complaint: Worsening COVID symptoms, dyspnea HPI Narrative The patient is a 70 y/o F w/ PMHx: Hypothyroidism who presents to the [facility] ED on 06/09/21 with history of onset COVID type symptoms 2 weeks prior to current presentation with subjective mild chills, no specific fevers, fatigue, malaise, cough, dyspnea, loss of smell and taste, headaches, body aches, nausea with emesis x 1 with abdominal discomfort but no diarrhea in addition to new onset vacillating heart rate and worsening fatigue prompting ED evaluation. Patient is not vaccinated against COVID-19. Patient's also feels poorly and was evaluated in the ED on the same day but will be discharged home per discussion with ED physician. Work-up in the ED included T 97.2, heart rate vacillating between 90s and 150s, BP 122/67, respiratory rate ranging from 16-23, oxygenation initially 95-100%, however on evaluation was decreasing to 92-94% on monitor with good wave form therefore will be considered severe COVID infection, CBC with WC 9.2, hemoglobin 13.5, platelet 347 with mildly increased immature granulocytes with lymphopenia, BMP with potassium 3.0, carbon oxide 33, glucose 123, magnesium 1.9, cardiac troponin 6, TSH 4.09, EKG with new onset atrial fibrillation with RVR with rate up to 150s, rapid Covid antigen positive, chest x-ray with bilateral pneumonia, CTPA with no evidence of PE, bilateral subsegmental atelectasis or pneumonitis consistent with COVID-19 pneumonia. In the ED patient administered potassium supplementation 40 mEq x 1. [facility] Medical History (Updated 06/09/21 @ 14:[address] Edna Traylor MD) History of irritable colon Hypothyroidism Home Medications dicyclomine 20 mg PO DAILY 03/11/18 [History Last Taken Unknown] ergocalciferol (vitamin D2) [Vitamin D] 50,000 unit PO Q7D 03/11/18 [History Last Taken Unknown] hydrocodone-acetaminophen [[place] 5-325 Tablet] 1 - 2 ea PO 4X/DAY PRN PRN 5 Days #20 tab 03/11/18 [Rx Last Taken Unknown] vwieb-nd-8-tiy-oeh-zqrlqnc-ast [Krill Oil 500 mg Softgel] 1 ea PO DAILY 03/11/18 [History Last Taken Unknown] levothyroxine 50 mcg PO DAILY 03/11/18 [History Last Taken Unknown] ondansetron 4 mg PO Q8H PRN PRN #10 tab 03/11/18 [Rx Last Taken Unknown] psyllium husk [Fiber] 0.4 g PO DAILY 03/11/18 [History Last Taken Unknown] Allergy/AdvReac Type Severity Reaction Status Date / Time diphenhydramine HCl Allergy Anaphylaxis Verified 05/08/21 11:00 [From Benadryl] Penicillins [PCN] Allergy Other Verified 05/08/21 11:01 morphine AdvReac Other Verified 05/08/21 11:01 Family History (Updated 06/09/21 @ 14:[address] Edna Traylor MD) Father Hypertension COPD (chronic obstructive pulmonary disease) other (Notes mother secondary to bacteremia associated w/ Cholecystitis and attempted surgery.) Surgical History (Updated 06/09/21 @ 14:[address] Edna Traylor MD) H/O unilateral salpingectomy History of unilateral oophorectomy S/P appendectomy S/P cholecystectomy Social History (Updated 06/09/21 @ 14:[address] Edna Traylor MD) household members: spouse Smoking Status: Never smoker alcohol intake: never substance use type: does not use ROS ROS Narrative Admission Review of Systems: CONSTITUTIONAL: No weight loss, fever, + chills, weakness or fatigue. HEENT: + [place], decreased taste/smell, congestion, sore throat. Eyes: No visual loss, blurred vision, double vision or yellow sclerae. Ears, Nose, Throat: No hearing loss, sneezing. SKIN: No rash or itching, lesions, wounds. CARDIOVASCULAR: No chest pain, chest pressure or chest discomfort, palpitations, edema, orthopnea, syncopal events. RESPIRATORY: + shortness of breath, cough without sputum, No wheezing, hemoptysis. GASTROINTESTINAL: + anorexia, nausea, vomiting, abdominal discomfort, No melena, BRBPR. GENITOURINARY: No dysuria, frequency, urgency or retention. NEUROLOGICAL: + headache, No dizziness, syncope, paralysis, ataxia, numbness or tingling in the extremities, focal weakness, change in bowel or bladder control, seizure. MUSCULOSKELETAL: + muscle, back pain, joint pain or stiffness. HEMATOLOGIC: No anemia, bleeding or bruising. LYMPHATICS: No enlarged nodes. No history of splenectomy. PSYCHIATRIC: No history of depression or anxiety. ENDOCRINOLOGIC: No reports of sweating, cold or heat intolerance. No polyuria or polydipsia. ALLERGIES: No history of asthma, hives, eczema or rhinitis. Vital Signs Vital Signs Vital Signs: 06/09/21 11:23 06/09/21 11:27 06/09/21 12:04 Temperature 97.2 F L 97.2 F L Temperature Source Temporal Temporal Pulse Rate 122 H 96 Respiratory Rate 18 16 Respiratory Effort Respiratory Depth Respiratory Pattern Blood Pressure 122/67 H 119/83 H Blood Pressure Mean 85 95 Pulse Ox 92 96 96 Oxygen Delivery Method Room Air Room Air Room Air 06/09/21 12:06 06/09/21 12:12 06/09/21 12:24 Temperature Temperature Source Pulse Rate 96 96 Respiratory Rate 23 H 16 Respiratory Effort Normal Non-Labored Respiratory Depth Normal Respiratory Pattern Normal Blood Pressure 119/83 H 119/83 H Blood Pressure Mean 95 95 Pulse Ox 94 96 Oxygen Delivery Method Room Air Room Air Room Air 06/09/21 12:27 06/09/21 13:16 06/09/21 13:30 Temperature 97.2 F L Temperature Source Temporal Pulse Rate 96 108 H 95 Respiratory Rate 16 19 H 20 H Respiratory Effort Respiratory Depth Respiratory Pattern Blood Pressure 119/83 H 120/83 H 120/83 H Blood Pressure Mean 95 95 95 Pulse Ox 96 100 95 Oxygen Delivery Method Room Air Room Air Room Air Weight Weight: 135 lb Body Mass Index (BMI) 25.4 Physical Exam Narrative Physical Examination: General: Awake, alert, oriented x 3 and cooperative, seated upright in the ED bed in no apparent distress, fatigued and ill-appearing. Skin: Normal color, normal turgor, no icterus, no cyanosis. HEENT: AT/NC, EOMI, PERRLA, moderately dry MM, no carotid bruits or JVD noted. Lungs: Diffusely diminished, greater bases, mild crackles bilaterally diffusely, mildly increased respiratory rate, no or wheezing. Heart: Irregular regular; no gallop, rub audible. Abdomen: Soft, mild generalized discomfort to palpation with no rebound or guarding, mildly distended, mildly hyperactive bowel sounds, no obvious HSM. Extremities: No cyanosis, clubbing, or edema. Neurological: Patient awake, alert, oriented as noted, cognitive function intact; pupils equally reactive to light and accommodation, cranial nerves II- XII grossly normal, moving all 4 extremities, no focal deficits, strength severely globally [place] secondary to acute presentation. Psychiatric: Affect appears fatigued, ill-appearing, no acute evidence of depressive or anxiety feelings. Results Lab / Micro Data Result Diagrams: 06/09/21 11:37 06/09/21 11:37 Labs: Laboratory Results - last 24 hr 06/09/21 11:37: WBC 9.2, RBC 4.70, Hgb 13.5, Hct 43.4, MCV 92.3, MCH 28.7, MCHC 31.1 L, RDW Std Deviation 44.1 H, RDW Coeff of Rea 13.0, Plt Count 347, MPV 9.3, Immature Gran % (Auto) 1.300 H, Neut % (Auto) 80.5 H, Lymph % (Auto) 8.7 L, [place] % (Auto) 9.1, Eos % (Auto) 0.2, Baso % (Auto) 0.2, Absolute Neuts (auto) 7.4, Absolute Lymphs (auto) 0.80 L, Nucleated RBC % 0 06/09/21 11:37: Sodium 139, Potassium 3.0 L, Chloride 99, Carbon Dioxide 33.0 H, Anion Gap 7, BUN 10, Creatinine 0.77, Estim Creat Clear Calc 38.94, Est GFR (MDRD) Af Amer 95, Est GFR (MDRD) Non-Af 78, BUN/Creatinine Ratio 13.0, Glucose 123 H, Calcium 9.1, Magnesium 1.9, Troponin I High Sens 6, TSH 4.09 H Micro: Microbiology 06/09/21 12:16 Nasal Secretion SARS-CoV-2 Antigen (Rapid) - Final SARS-CoV-2 (COVID 19) Radiology Impression Chest X-Ray 06/09/21 12:21 IMPRESSION: Bilateral pneumonia. Electronically Signed: Elver Simpson MD at 12:56 EDT Tel , Service support , Chest CTA 06/09/21 12:38 IMPRESSION: 1. No CT evidence of pulmonary embolism. 2. Bilateral subsegmental atelectasis or pneumonitis. Commonly reported imaging features of Covid 19 pneumonia are present. Other processes such as influenza pneumonia and organizing pneumonia from drug toxicity or connective tissue disease can cause a similar imaging pattern Electronically Signed: Elver Simpson MD at 13:38 EDT Tel , Service support , Assessment & Plan Assessment/Plan (1) Atrial fibrillation, new onset: (2) Pneumonia due to 2019 novel coronavirus: (3) Hypoxia: PLAN: The patient is a 70 y/o F w/ PMHx: Hypothyroidism who presents to the [facility] ED on 06/09/21 with history of onset COVID type symptoms 2 weeks prior to current presentation with subjective mild chills, no specific fevers, fatigue, malaise, cough, dyspnea, loss of smell and taste, headaches, body aches, nausea with emesis x 1 with abdominal discomfort but no diarrhea in addition to new o nset vacillating heart rate and worsening fatigue prompting ED evaluation. 1. Acute Hypoxia secondary to Acute Bilateral Pneumonia secondary to Acute Viral Syndrome, COVID-19: Will admit PCU, given evaluation in the ED with hypoxia 92-94% will be considered severe COVID and requiring the 20 days of quarantine, PRN albuterol, HOB, IS parameters w/ pending sputum cultures, respiratory viral panel and urine antigens, will obtain D-dimer, procalcitonin, CRP, CPK, Ferritin, LDH, trop and BNP, continue supportive care including q 2 hour turning including prone given no prone bed availability and judicious hydration, initiate Decadron 6 mg IV x10-day duration, patient is out of the timeline for remdesivir administration. PT, OT, CM consultations for discharge planning. 2. New Onset Paroxsymal atrial fibrillation: EKG in ED w/ atrial fibrillation w/ RVR. Likely secondary to acute presentation #1 although patient rate improved without regimen in the ED. Will maintain on telemetry, obtain cardiac enzyme serial set, mag normal, TSH mildly elevated w/ pending FT4, defer ECHO currently given #1 and quarantine ongoing but if necessary may request. Will start low dose BID metoprolol. Will maintain on therapeutic lovenox at this time. CM consulted. 3. Hypokalemia: Admission K+ 3.0, magnesium level 1.9, supplementation given, repeat level in AM. 4. Hypothyroidism with elevated TSH: Admission TSH 4.09, free T4 requested, continue home Synthroid regimen in the interim 5. DVT prophylaxis: SCDs, Lovenox. 6. CODE status: Patient healthcare power of traffic law attorney and living will are not in place. Given acute presentation, discussed CODE status at length including difference between FULL code, DNR-CCA and DNR-CC status. Following discussions about the differences in these status, requested Full Code status; however, notes intention to review with her spouse. Advanced Care Planning Face to Face Time: 16 minutes. Charges/Coding Visit Charges Inpatient E&M: 88521 Init Hosp L3 Procedures Hospitalists Procedures: 76466 Advncd Care Plan 30 Min
--- NOTE | 2021-06-09 14:07 | NURSING ---
PCU OBS WHITE COVID, NEW ONSET A FIB
[2021-06-09 14:32] LABS: AST(SGOT) 32 U/L (15-37); Alanine Aminotransfer ALT/SGPT 39 U/L (13-56); Albumin, Serum 2.8 g/dL (3.2-5.0); Alkaline Phosphatase 107 U/L (45-117); Bilirubin, Direct 0.18 mg/dL (0.00-0.30); Ferritin 361 ng/mL (8-252); LDH 323 U/L (84-246); Protein, Total 7.8 g/dL (6.4-8.2)
[2021-06-09 14:37] LABS: BNP,B-Type NATRIURETIC PEPTIDE 112.5 pg/mL (0-100)
[2021-06-09 14:39] LABS: Procalcitonin 0.07 ng/mL (0.00-0.09)
--- NOTE | 2021-06-09 14:49 | PCS.PANDOC ---
PANDEMIC DOCUMENTATION INITIATED: Date: 04/16/2021 Time: 190
[2021-06-09] MEDS: 0.9% Normal Saline 1,000 ML 100 ML IV (14:58)
[2021-06-09] MEDS: Famotidine 20 MG Tablet PO (15:24)
[2021-06-09] MEDS: Furosemide 20 MG/2 ML VIAL 10 MG IV (15:24)
[2021-06-09] MEDS: Potassium Chloride Oral Tablet 20 MEQ 40 MEQ PO (15:24)
[2021-06-09] MEDS: Metoprolol Tartrate 25 MG Tablet PO ×2 (15:24→21:45)
[2021-06-09 15:30] LABS: Troponin-I HS 8 pg/mL (3.0-54.0)
--- NOTE | 2021-06-09 15:46 | EKG12_ITS ---
Test Reason : PRE-OP Blood Pressure : / mmHG Vent. Rate : 089 BPM Atrial Rate : 089 BPM P-R Int : 170 ms QRS Dur : 082 ms QT Int : 398 ms P-R-T Axes : 044 -11 044 degrees QTc Int : 484 ms Normal sinus rhythm Normal ECG When compared with ECG of 09-JUN-2021 16:00, MANUAL COMPARISON REQUIRED, DATA IS UNCONFIRMED Confirmed by TUTU ROMAN, KUSHAL ([id number]), technical writer and editor DARIN BALES ([id number]) on 06/12/2021 9:48:58 AM Referred By: TURNER Confirmed By:KUSHAL CAM MD
[2021-06-09 17:53] LABS: Troponin-I HS 8 pg/mL (3.0-54.0)
[2021-06-09] MEDS: Senna Tablet 2 TABLET PO (21:45)
[2021-06-09] MEDS: Enoxaparin 100 MG/ML Syringe 60 MG SC (21:45)
[2021-06-09] MEDS: tiZANidine HCl 2 MG Tablet PO (22:49)
[2021-06-10] VITALS (15 sets, daily range): BP systolic 103–132; BP diastolic 51–66; PULSE 61–92; RESP 16–18; TEMP 36.3–37.7; O2SAT 90–95
[2021-06-10 05:39] LABS: Absolute Lymphocyte Count 0.86 X10^3/uL (0.83-4.51); Absolute Neutrophil Count 5.8 X10^3/uL (2.0-7.7); Basophil# 0.02 X10^3/uL; Basophil% 0.3 % (0-1); Eosinophil# 0.05 X10^3/uL; Eosinophils% 0.7 % (0-5); Hematocrit 35.5 % (37-47); Hemoglobin 11.1 g/dL (12.0-15.0); Lymphocyte # 0.86 X10^3/ul (0.83-4.51); Lymphocyte % 11.2 % (19-41); Mean Corp Hgb Conc 31.3 g/dL (32-36); Mean Corpuscular Hgb 29.1 pg (27.0-32.0); Mean Corpuscular Volume 92.9 fL (81-99); Mean Platelet Vol. 9.4 fl (6.2-12.0); Monocyte# 0.79 X10^3/uL; Monocyte% 10.3 % (0-10); NRBC Flagged by Analyzer 0 % (0-5); Neutrophil # 5.81 X10^3/uL (2.7-7.7); Neutrophil % 75.8 % (47-70); Platelet Count 326 K/mm3 (150-450); RBC Distribution Width CV 13.2 % (11.6-14.6); Red Blood Count 3.82 M/mm3 (4.2-5.4); White Blood Count 7.7 K/mm3 (4.4-11.0)
--- NOTE | 2021-06-10 05:55 | EKG12_ITS ---
Test Reason : Blood Pressure : / mmHG Vent. Rate : 093 BPM Atrial Rate : 093 BPM P-R Int : 146 ms QRS Dur : 076 ms QT Int : 368 ms P-R-T Axes : 043 -23 023 degrees QTc Int : 457 ms Normal sinus rhythm Normal ECG When compared with ECG of 09-JUN-2021 11:33, MANUAL COMPARISON REQUIRED, DATA IS UNCONFIRMED Confirmed by TUTU ROMAN, KUSHAL ([id number]), video news editor DARIN BALES ([id number]) on 06/12/2021 9:49:16 AM Referred By: TURNER Confirmed By:KUSHAL CAM MD
[2021-06-10 06:24] LABS: ALB/GLOB Ratio 0.5 RATIO (0.9-2.4); AST(SGOT) 22 U/L (15-37); Alanine Aminotransfer ALT/SGPT 27 U/L (13-56); Albumin, Serum 2.1 g/dL (3.2-5.0); Alkaline Phosphatase 87 U/L (45-117); Anion Gap 7 (5-15); BUN 11 mg/dL (7-18); BUN/Creat Ratio 18.5 RATIO (10-20); Calcium,Total 8.6 mg/dL (8.5-10.1); Chloride 106 mmol/L (98-107); Cholesterol 127 mg/dL (200); EST Glomerular Filtration Rate 105 mL/min (>60); Est Glom Filt Rate - Afr Amer 128 mL/min (>60); Estimated Creatinine Clearance 38.94 ml/min; Globulin 4.2 g/dL (2.2-4.2); Glucose 96 mg/dL (74-106); High Density Lipoprotein 36 mg/dL; Potassium 4.9 mmol/L (3.5-5.1); Protein, Total 6.3 g/dL (6.4-8.2); Sodium Level 141 mmol/L (136-145); T4 Free Direct 1.53 ng/dL (0.76-1.46); Triglycerides 109 mg/dL; Very Low Density Lipoprotein 22 mg/dL (5-40)
[2021-06-10] MEDS: dexAMETHasone 10 MG/ML Vial 6 MG IV (09:07)
[2021-06-10] MEDS: Enoxaparin 100 MG/ML Syringe 60 MG SC ×2 (09:07→20:48)
[2021-06-10] MEDS: Metoprolol Tartrate 25 MG Tablet PO ×2 (09:07→20:48)
[2021-06-10] MEDS: Levothyroxine 75 MCG Tablet PO (09:07)
[2021-06-10] MEDS: Famotidine 20 MG Tablet PO (09:07)
[2021-06-10] MEDS: 0.9% Saline Lock 10 ML Syringe IV (09:08)
[2021-06-10] MEDS: Acetaminophen 325 MG Tablet 650 MG PO (09:13)
--- NOTE | 2021-06-10 12:16 | PCM.DC.SUM ---
Providers Date of Admission: 06/09/21 Primary Care Physician: Anay [facility] Reason For Visit: RECENT COVID, MILD HYPOXIA, PAF W/ RVR Diagnosis Discharge Diagnosis (1) Atrial fibrillation, new onset: Status: Acute Code(s): I48.91 - Unspecified atrial fibrillation (2) Pneumonia due to 2019 novel coronavirus: Status: Acute Code(s): U07.1 - COVID-19; J12.82 - Pneumonia due to coronavirus disease 2019 (3) Hypoxia: Status: Acute Code(s): R09.02 - Hypoxemia Medications at Discharge Home Medications ergocalciferol (vitamin D2) [Vitamin D] 2,000 unit PO DAILY 03/11/18 [id number] [Krill Oil 500 mg Softgel] 1 ea PO DAILY 03/11/18 levothyroxine 75 mcg PO DAILY 03/11/18 lactobacillus combination no.4 [Probiotic] 3,000 mmu cells PO DAILY 06/09/21 sennosides [Senokot] 17.2 mg PO QHS 06/09/21 Hospital Course Operations None Procedures None Weight / BMI Weight Weight: 136 lb 14.513 oz Body Mass Index (BMI) 24.9 ABG / Lab / Microbiology Data Result Diagrams: 06/10/21 05:10 06/10/21 05:10 Laboratory: Laboratory Results - last 24 hr 06/09/21 11:35: D-Dimer Quant (PE/DVT) 0.80 H* 06/09/21 11:35: Ferritin 361 H, Total Bilirubin 0.50, Direct Bilirubin 0.18, AST 32, ALT 39, Alkaline Phosphatase 107, Lactate Dehydrogenase 323 H, C-React Prot Ext Range 165.00 H, Total Protein 7.8, Albumin 2.8 L, Globulin 5.0 H 06/09/21 11:35: B-Natriuretic Peptide 112.5 H 06/09/21 11:35: Procalcitonin 0.07 06/09/21 11:37: Sodium 139, Potassium 3.0 L, Chloride 99, Carbon Dioxide 33.0 H, Anion Gap 7, BUN 10, Creatinine 0.77, Estim Creat Clear Calc 38.94, Est GFR (MDRD) Af Amer 95, Est GFR (MDRD) Non-Af 78, BUN/Creatinine Ratio 13.0, Glucose 123 H, Calcium 9.1, Magnesium 1.9, Troponin I High Sens 6, TSH 4.09 H 06/09/21 15:04: Troponin I High Sens 8 06/09/21 17:24: Troponin I High Sens 8 06/10/21 05:10: WBC 7.7, RBC 3.82 L, Hgb 11.1 L, Hct 35.5 L, MCV 92.9, MCH 29.1, MCHC 31.3 L, RDW Std Deviation 45.0 H, RDW Coeff of Rea 13.2, Plt Count 326, MPV 9.4, Immature Gran % (Auto) 1.700 H, Neut % (Auto) 75.8 H, Lymph % (Auto) 11.2 L, [place] % (Auto) 10.3 H, Eos % (Auto) 0.7, Baso % (Auto) 0.3, Absolute Neuts (auto) 5.8, Absolute Lymphs (auto) 0.86, Nucleated RBC % 0 06/10/21 05:10: Sodium 141, Potassium 4.9, Chloride 106, Carbon Dioxide 28.0, Anion Gap 7, BUN 11, Creatinine 0.60, Estim Creat Clear Calc 38.94, Est GFR (MDRD) Af Amer 128, Est GFR (MDRD) Non-Af 105, BUN/Creatinine Ratio 18.5, Glucose 96, Calcium 8.6, Total Bilirubin 0.50, AST 22, ALT 27, Alkaline Phosphatase 87, Total Protein 6.3 L, Albumin 2.1 L, Globulin 4.2, Albumin/Globulin Ratio 0.5 L, Triglycerides 109, Cholesterol 127, LDL Cholesterol 69, VLDL Cholesterol 22, HDL Cholesterol 36 L, Free T4 1.53 H Microbiology: Microbiology 06/09/21 20:00 Sputum, Expectorated/Coughed Respiratory Culture - Preliminary 06/09/21 16:00 Mucosa - Nasopharyngeal Respiratory Panel (PCR) - Final 06/09/21 16:00 Urine, Clean Catch Legionella Antigen - Final 06/09/21 16:00 Urine, Clean Catch Streptococcus pneumoniae Antigen (M - Final 06/09/21 12:16 Nasal Secretion SARS-CoV-2 Antigen (Rapid) - Final SARS-CoV-2 (COVID 19) Radiography Diagnostic Testing: Radiology Impression Chest X-Ray 06/09/21 12:21 IMPRESSION: Bilateral pneumonia. Electronically Signed: Elver Simpson MD at 12:56 EDT Tel , Service support , Chest CTA 06/09/21 12:38 IMPRESSION: 1. No CT evidence of pulmonary embolism. 2. Bilateral subsegmental atelectasis or pneumonitis. Commonly reported imaging features of Covid 19 pneumonia are present. Other processes such as influenza pneumonia and organizing pneumonia from drug toxicity or connective tissue disease can cause a similar imaging pattern Electronically Signed: Elver Simpson MD at 13:38 EDT Tel , Service support , Discharge Plan Admission Admit Date/Time: 06/09/21 14:01 Attending Provider: Mamta Quiñones [facility] Orders/Prescriptions Prescriptions: No Action levothyroxine 50 MCG tablet 75 mcg PO DAILY RF: 0 ergocalciferol (vitamin D2) [Vitamin D2] 50,000 UNIT capsule 2,000 unit PO DAILY RF: 0 krill oil 1 EACH capsule 1 ea PO DAILY RF: 0 sennosides [Senokot] 8.6 mg Tablet 17.2 mg PO QHS RF: 0 Probiotic 3 billion cell Capsule 3,000 mmu cells PO DAILY RF: 0 [facility] - Disposition Discharge Orders: Discharge Patient (Routine); Ordered 06/10/21 Ordered By: Dr. Mamta Quiñones
--- NOTE | 2021-06-10 12:35 | PN.HOSP_ITS ---
Subjective Subjective Patient seen and examined. She was admitted with a complaint of shortness of breath, chills and fatigue as well as malaise and cough with dyspnea as well as loss of taste and headaches. She was also noted to be in afib with RVR. CTA was negative for PE and showed bilateral subsegmental atelectasis. She has remained in normal sinus rhythm, and has remained hemodynamically stable. Objective Data Objective Data Vital Signs: Vital Signs Temp Pulse Resp BP Pulse Ox 99.9 F H 69 17 105/55 L 93 06/10/21 09:03 06/10/21 10:59 06/10/21 09:03 06/10/21 09:03 06/10/21 10:29 Oxygen Flow Rate (L/min) [ 0 AMBULATING on Room Air] Oxygen Flow Rate (L/min) [At 0 REST on Room Air] Oxygen Delivery Method Room Air Weight: 136 lb 14.513 oz Body Mass Index (BMI) 24.9 Intake & Output: Intake and Output for Last 24 Hours 06/08/21 06/09/21 06/10/21 23:59 23:59 23:59 Intake Total 120 / 120 1000 / 1000 Balance 120 / 120 1000 / 1000 Lab / Micro Data Result Diagrams: 06/10/21 05:10 06/10/21 05:10 Labs: Laboratory Results - last 24 hr 06/09/21 11:35: D-Dimer Quant (PE/DVT) 0.80 H* 06/09/21 11:35: Ferritin 361 H, Total Bilirubin 0.50, Direct Bilirubin 0.18, AST 32, ALT 39, Alkaline Phosphatase 107, Lactate Dehydrogenase 323 H, C-React Prot Ext Range 165.00 H, Total Protein 7.8, Albumin 2.8 L, Globulin 5.0 H 06/09/21 11:35: B-Natriuretic Peptide 112.5 H 06/09/21 11:35: Procalcitonin 0.07 06/09/21 15:04: Troponin I High Sens 8 06/09/21 17:24: Troponin I High Sens 8 06/10/21 05:10: WBC 7.7, RBC 3.82 L, Hgb 11.1 L, Hct 35.5 L, MCV 92.9, MCH 29.1, MCHC 31.3 L, RDW Std Deviation 45.0 H, RDW Coeff of Rea 13.2, Plt Count 326, MPV 9.4, Immature Gran % (Auto) 1.700 H, Neut % (Auto) 75.8 H, Lymph % (Auto) 11.2 L , [place] % (Auto) 10.3 H, Eos % (Auto) 0.7, Baso % (Auto) 0.3, Absolute Neuts (auto) 5.8, Absolute Lymphs (auto) 0.86, Nucleated RBC % 0 06/10/21 05:10: Sodium 141, Potassium 4.9, Chloride 106, Carbon Dioxide 28.0, Anion Gap 7, BUN 11, Creatinine 0.60, Estim Creat Clear Calc 38.94, Est GFR (MDRD) Af Amer 128, Est GFR (MDRD) Non-Af 105, BUN/Creatinine Ratio 18.5, Glucose 96, Calcium 8.6, Total Bilirubin 0.50, AST 22, ALT 27, Alkaline Phosphatase 87, Total Protein 6.3 L, Albumin 2.1 L, Globulin 4.2, Albumin/Globulin Ratio 0.5 L, Triglycerides 109, Cholesterol 127, LDL Cholesterol 69, VLDL Cholesterol 22, HDL Cholesterol 36 L, Free T4 1.53 H Micro: Microbiology 06/09/21 20:00 Sputum, Expectorated/Coughed Respiratory Culture - Preliminary 06/09/21 16:00 Mucosa - Nasopharyngeal Respiratory Panel (PCR) - Final 06/09/21 16:00 Urine, Clean Catch Legionella Antigen - Final 06/09/21 16:00 Urine, Clean Catch Streptococcus pneumoniae Antigen (M - Final 06/09/21 12:16 Nasal Secretion SARS-CoV-2 Antigen (Rapid) - Final SARS-CoV-2 (COVID 19) Radiography Diagnostic Testing: Radiology Impression Chest X-Ray 06/09/21 12:21 IMPRESSION: Bilateral pneumonia. Electronically Signed: Elver Simpson MD at 12:56 EDT Tel , Service support , Chest CTA 06/09/21 12:38 IMPRESSION: 1. No CT evidence of pulmonary embolism. 2. Bilateral subsegmental atelectasis or pneumonitis. Commonly reported imaging features of Covid 19 pneumonia are present. Other processes such as influenza pneumonia and organizing pneumonia from drug toxicity or connective tissue disease can cause a similar imaging pattern Electronically Signed: Elver Simpson MD at 13:38 EDT Tel , Service support , Physical Exam Const alert, oriented x3 and no apparent distress Exam Limitations: no limitations HEENT head/scalp atraumatic and moist oral mucous membranes Head and Scalp: normocephalic Eyes PERRL, EOMs intact bilaterally and conjunctivae normal Neck no lymphadenopathy Resp normal respiratory effort, no retractions, no use of accessory muscles and clear to auscultation bilaterally Cardio regular rate, regular rhythm, S1 normal heart sound, S2 normal heart sound and no murmurs GI normal to inspection, nondistended, normoactive bowel sounds, soft to palpation, non-tender and non-distended Extremity normal to inspection, full ROM and no clubbing, cyanosis or edema Peripheral Pulses: Yes pulses 2+ throughout Skin no rashes or lesions noted Neuro oriented x3, CN's II-XII intact bilaterally and moves all extremities Sensorium / Orientation: awake and alert Psych affect normal Assessment & Plan Assessment/Plan (1) Atrial fibrillation, new onset: (2) Pneumonia due to 2019 novel coronavirus: (3) Hypoxia: PLAN: #COVID 19 infection * shortness of breath has resolved and patient feels much better. * on room air. * patient is n decadron. Doesnt qualify for remdesivir as she is ouot of window; symptoms started ~ 2 weeks ago. * * #New onset afib * was in afib with RVR on admission. Now converted to normal sinus rhythm. * last 2D echo was in 2012. 2D echo ordered and pending * started on metoprolol * TSH was elevated at ~ 4. * on therapeutic lovenox * #Hypokalemia: resolved #Hypothyroidism * on synthroid. Free T4 was * TSH was elevated at 4.09. * continue synthroid, counseled on compliance * DVT prophylaxis; on therapeutic dose of lovenox Disposition: Plan was to discharge patient today but in light of new onset A. fib, I do think it is prudent to do a 2D echo and then discharge patient. Patient is currently on therapeutic Lovenox. If she remains in normal sinus rhythm, then this can be taken to be alone incident of A. fib and so she may not need to be discharged on anticoagulation. FOr likely DC home tomorrow after 2D echo is done Charges/Coding Visit Charges OBSV E&M: 02206 Subsequent observation care L2
[2021-06-10] MEDS: Senna Tablet 2 TABLET PO (20:48)
[2021-06-10] MEDS: tiZANidine HCl 2 MG Tablet PO (21:45)
--- NOTE | 2021-06-10 22:01 | NURSING ---
Patient unable to lay prone during this time, patient layed on left side and seemed comfortable. Patient encouraged to also lay on right side later.
[2021-06-11] VITALS (13 sets, daily range): BP systolic 118–146; BP diastolic 64–70; PULSE 50–94; RESP 16–18; TEMP 36.4–37.3; O2SAT 86–95
[2021-06-11] MEDS: Metoprolol Tartrate 25 MG Tablet PO ×2 (10:08→17:47)
[2021-06-11] MEDS: APIXABAN 5 MG TABLET PO ×2 (10:09→17:47)
[2021-06-11] MEDS: Famotidine 20 MG Tablet PO (10:09)
[2021-06-11] MEDS: dexAMETHasone 10 MG/ML Vial 6 MG IV (10:10)
[2021-06-11] MEDS: 0.9% Saline Lock 10 ML Syringe IV (10:10)
[2021-06-11] MEDS: Levothyroxine 75 MCG Tablet PO (10:10)
--- NOTE | 2021-06-11 12:10 | CASEMGMT ---
KESHA WHELAN assessment: Initial transition planning/care coordination assessment. KESHA WHELAN introduced self and role at [facility], pt voices understanding and consents to assessment. Pt is on room air but does qualify for oxygen with ambulation. Pt is A/Ox4 and answers all questions appropriately. Pt states her is recovering from COVID at home and states no concerns getting resources once home. Pt states does not have a pulse ox at home. Care providers, pharmacy, and demographics verified. Presentation: Pt states started with cough 14 days ago then lost taste/smell, did not get COVID test, pt c/o increased weakness Admitting dx: COVID pna, Afib RVR PCP: Anay jenkins Specialists: Pt states no current specialists. Preferred Pharmacy: [facility] Insurance: [facility]/JONY Prescription Benefit: Yes Living Will/HPOA: Pt states does not have LW/HPOA and declines AD info. LNOK: Leonides Bowen, Living Arrangements: Pt lives with in apartment with 3 steps in and states no concerns at home. Pt states independent with ADL's. Transportation: Pt states drives self and states no transportation concerns. DME/HHC: Pt states no current DME. Pt states would like [facility], if qualifies for home oxygen at discharge. Pt states no hx of HHC or SNF. Pt states no concerns with going home at time of discharge. Pt is retired. Pt states does not smoke cigarettes or drink ETOH. Pt states no further concerns/needs. CM to follow for home oxygen need and any further discharge planning/needs. Advised pt to ask for CM if any further questions/concerns/needs arise, voices understanding. Pt Goal: Home Plan: Home, pending home oxygen testing. [place] KESHA WHELAN
--- NOTE | 2021-06-11 12:10 | CASEMGMT ---
KESHA WHELAN assessment: Initial transition planning/care coordination assessment. KESHA WHELAN introduced self and role at [facility], pt voices understanding and consents to assessment. Pt is on room air but does qualify for oxygen with ambulation. Pt is A/Ox4 and answers all questions appropriately. Pt states her is recovering from COVID at home and states no concerns getting resources once home. Pt states does not have a pulse ox at home. Care providers, pharmacy, and demographics verified. Presentation: Pt states started with cough 14 days ago then lost taste/smell, did not get COVID test, pt c/o increased weakness Admitting dx: COVID pna, Afib RVR PCP: Anay jenkins Specialists: Pt states no current specialists. Preferred Pharmacy: [facility] Insurance: [facility]/JONY Prescription Benefit: Yes Living Will/HPOA: Pt states does not have LW/HPOA and declines AD info. LNOK: Leonides Bowen, Living Arrangements: Pt lives with in apartment with 3 steps in and states no concerns at home. Pt states independent with ADL's. Transportation: Pt states drives and states no transportation concerns. DME/HHC: Pt states no current DME. Pt states would like [facility], if qualifies for home oxygen at discharge. Pt states no hx of HHC or SNF. Pt states no concerns with going home at time of discharge. Pt is retired. Pt states does not smoke cigarettes or drink ETOH. Pt states no further concerns/needs. CM to follow for home oxygen need and any further discharge planning/needs. Advised pt to ask for CM if any further questions/concerns/needs arise, voices understanding. Pt Goal: Home Plan: Home, pending home oxygen testing. [place] KESHA WHELAN
--- NOTE | 2021-06-11 15:40 | PCM.DC ---
Discharge Instructions Diet Discharge Diet: No restrictions Activity Discharge Activity: Return to Normal Activity Dressing / Incision Call your doctor if you observe: Fever of 101 or Higher, Shortness of breath, Dizziness, Fainting spells, Swelling in the ankles, Chest pain and Increased palpitations (irregular heartbeat) Follow Up Care Test Results: Test results from this visit will be discussed in further detail at your follow-up appointment, if applicable. Discharge Plan Admission Admit Date/Time: 06/09/21 14:01 Attending Provider: Lm Adkins [facility] Inst[facility] Additional Instructions / Restrictions: You will complete quarantine in 4 days Discharge Orders/Prescriptions Prescriptions: New Eliquis 5 mg Tablet 5 mg PO BID Qty: 60 RF: 0 metoprolol tartrate 25 mg Tablet 25 mg PO BID Qty: 60 RF: 0 dexamethasone 2 mg tablet 6 mg PO DAILY 8 Days Qty: 24 RF: 0 Continued levothyroxine 50 MCG tablet 75 mcg PO DAILY RF: 0 ergocalciferol (vitamin D2) [Vitamin D2] 50,000 UNIT capsule 2,000 unit PO DAILY RF: 0 krill oil 1 EACH capsule 1 ea PO DAILY RF: 0 sennosides [Senokot] 8.6 mg Tablet 17.2 mg PO QHS RF: 0 Probiotic 3 billion cell Capsule 3,000 mmu cells PO DAILY RF: 0 Referrals / Follow Up: Roel Francois MD [STAFF PHYSICIAN] - Within 1 Month [facility],Anay Garvin [Primary Care Provider] - Within 1 Week Disposition Disposition (needs filled in before D/C Order can be placed): Home, Self Care
--- NOTE | 2021-06-11 15:49 | PCM.DC.SUM ---
Providers Date of Admission: 06/09/21 Primary Care Physician: Anay [facility] Reason For Visit: RECENT COVID, MILD HYPOXIA, PAF W/ RVR Diagnosis Discharge Diagnosis (1) Atrial fibrillation, new onset: Status: Acute Code(s): I48.91 - Unspecified atrial fibrillation (2) Pneumonia due to 2019 novel coronavirus: Status: Acute Code(s): U07.1 - COVID-19; J12.82 - Pneumonia due to coronavirus disease 2019 (3) Hypoxia: Status: Acute Code(s): R09.02 - Hypoxemia Medications at Discharge Home Medications ergocalciferol (vitamin D2) [Vitamin D2] 2,000 unit PO DAILY 03/11/18 krill oil 1 ea PO DAILY 03/11/18 levothyroxine 75 mcg PO DAILY 03/11/18 Probiotic 3,000 mmu cells PO DAILY 06/09/21 sennosides [Senokot] 17.2 mg PO QHS 06/09/21 apixaban [Eliquis] 5 mg PO BID #60 tab 06/11/21 dexamethasone 6 mg PO DAILY 8 Days #24 tab 06/11/21 metoprolol tartrate 25 mg PO BID #60 tab 06/11/21 Hospital Course Operations None Procedures None Summary of Care Provided Minutes Spent on Discharge: 40 Hospital Course: per HPI:The patient is a 70 y/o F w/ PMHx: Hypothyroidism who presents to the [facility] ED on 06/09/21 with history of onset COVID type symptoms 2 weeks prior to current presentation with subjective mild chills, no specific fevers, fatigue, malaise, cough, dyspnea, loss of smell and taste, headaches, body aches, nausea with emesis x 1 with abdominal discomfort but no diarrhea in addition to new onset vacillating heart rate and worsening fatigue prompting ED evaluation. Patient is not vaccinated against COVID-19. Patient's also feels poorly and was evaluated in the ED on the same day but will be discharged home per discussion with ED physician. Work-up in the ED included T 97.2, heart rate vacillating between 90s and 150s, BP 122/67, respiratory rate ranging from 16-23, oxygenation initially 95-100%, however on evaluation was decreasing to 92-94% on monitor with good wave form therefore will be considered severe COVID infection, CBC with WC 9.2, hemoglobin 13.5, platelet 347 with mildly increased immature granulocytes with lymphopenia, BMP with potassium 3.0, carbon oxide 33, glucose 123, magnesium 1.9, cardiac troponin 6, TSH 4.09, EKG with new onset atrial fibrillation with RVR with rate up to 150s, rapid Covid antigen positive, chest x-ray with bilateral pneumonia, CTPA with no evidence of PE, bilateral subsegmental atelectasis or pneumonitis consistent with COVID-19 pneumonia. In the ED patient administered potassium supplementation 40 mEq x 1. Hospital Course: 1. COVID-19 pneumonia/new onset A. [id number]-old female presented to the hospital with some shortness of breath and palpitations. She feels much improved now that her heart rate is normal sinus. Based on her age she does require anticoagulation I will have her follow-up with cardiology as an outpatient when she completes quarantine in 4 days. At that point she can obtain an echo. TSH was slightly elevated at 4.09 on admission. Her heart rate is improved with metoprolol 25 mg p.o. twice daily which will be continued on discharge. She feels much better today from an oxygen standpoint, she is not requiring any oxygen at rest and needs 2 L with ambulation. I did encourage her to wear her oxygen while she sleeps as well. I discussed with her the plan for discharge today and she expressed understanding of the risk benefits of going home and would like to go home today. I did discuss with her that she needs to remain in quarantine for another 4 days to complete a 20-day quarantine from the onset of symptoms 16 days ago, will complete 10 days worth of dexamethasone as well on discharge. 2. Hypothyroidism is a chronic medical condition which complicates her care. Her home patient new to where appropriate Physical Exam Const alert, oriented x3 and no apparent distress General Appearance: cooperative HEENT normocephalic and moist oral mucous membranes Eyes PERRL, EOMs intact bilaterally and conjunctivae normal Neck supple and no JVD Resp normal respiratory effort, no retractions and no use of accessory muscles Auscultation: diminished lung sounds; Negative for crackles, rales, rhonchi or wheezes Cardio regular rate, regular rhythm, S1 normal heart sound, S2 normal heart sound and no murmurs GI soft to palpation, non-tender and non-distended; Negative for hepatosplenomegaly Extremity no clubbing, cyanosis or edema Skin no rashes or lesions noted Neuro no focal motor deficits and no sensory deficits noted Psych affect normal Appearance: appropriate Weight / BMI Weight Weight: 137 lb 2.04 oz Body Mass Index (BMI) 24.9 ABG / Lab / Microbiology Data Result Diagrams: 06/10/21 05:10 06/10/21 05:10 Microbiology: Microbiology 06/09/21 20:00 Sputum, Expectorated/Coughed Gram Stain - Final 06/09/21 20:00 Sputum, Expectorated/Coughed Respiratory Culture - Preliminary Appears to be normal respiratory hermila. Further studies to follow. 06/09/21 16:00 Mucosa - Nasopharyngeal Respiratory Panel (PCR) - Final 06/09/21 16:00 Urine, Clean Catch Legionella Antigen - Final 06/09/21 16:00 Urine, Clean Catch Streptococcus pneumoniae Antigen (M - Final 06/09/21 12:16 Nasal Secretion SARS-CoV-2 Antigen (Rapid) - Final SARS-CoV-2 (COVID 19) D/C Instructions Discharge Diet: No restrictions Call your doctor if you observe: Fever of 101 or Higher, Shortness of breath, Dizziness, Fainting spells, Swelling in the ankles, Chest pain and Increased palpitations (irregular heartbeat) Meaningful Use Info Meaningful Use Diagnoses (Choose all that apply): None applicable Discharge Plan Admission Admit Date/Time: 06/09/21 14:01 Attending Provider: Lm Adkins [facility] Inst[facility] Additional Instructions / Restrictions: You will complete quarantine in 4 days Discharge Orders/Prescriptions Prescriptions: New Eliquis 5 mg Tablet 5 mg PO BID Qty: 60 RF: 0 metoprolol tartrate 25 mg Tablet 25 mg PO BID Qty: 60 RF: 0 dexamethasone 2 mg tablet 6 mg PO DAILY 8 Days Qty: 24 RF: 0 Continued levothyroxine 50 MCG tablet 75 mcg PO DAILY RF: 0 ergocalciferol (vitamin D2) [Vitamin D2] 50,000 UNIT capsule 2,000 unit PO DAILY RF: 0 krill oil 1 EACH capsule 1 ea PO DAILY RF: 0 sennosides [Senokot] 8.6 mg Tablet 17.2 mg PO QHS RF: 0 Probiotic 3 billion cell Capsule 3,000 mmu cells PO DAILY RF: 0 Referrals / Follow Up: Roel Francois MD [STAFF PHYSICIAN] - [facility]Primary Care Provider] - Within 1 Week Disposition Disposition (needs filled in before D/C Order can be placed): Home, Self Care Charges/Coding Visit Charges Inpatient E&M: 05790 Disch Hosp
--- NOTE | 2021-06-12 09:11 | CASEMGMT ---
Per Kem, PCU charge, [facility] did not have a concentrator to provide to pt at discharge so order was switched to [employer] and pt aware. Adamaris REBOLLEDO CM
--- NOTE | 2021-06-12 10:28 | CASEMGMT ---
Addendum entered by Judith Elliott 06/12/21 15:29: This RN CM attempted to reach pt again without success and unable to leave message. Adamaris REBOLLEDO CM Original Note: KESHA WHELAN COVID Discharge F/U Phone Call LACE: 6 Strata: 2 Discharge date: 06/11/21 Call date: 06/12/21 Call time: 1030 Attempted to reach pt without success and unable to leave message as voicemail box has not been set up yet. KESHA WHELAN to attempt to call pt again later. Adamaris REBOLLEDO CM Admission dx: Recent COVID, PAF w/ RVR, mild hypoxia
== END 2021-06-11 18:06 | disposition home or self-care (01) | DRG 177 ==
LOC: ED 14:03 → PCU 06-10 07:13
PROVIDERS: Admitting Provider Family Medicine; Emergency Provider Emergency Medicine; Visit Provider Family Medicine
DX: U07.1 COVID-19 (principal); I48.0 Paroxysmal atrial fibrillation; J12.82 Pneumonia due to coronavirus disease 2019; R09.02 Hypoxemia; E87.6 Hypokalemia; K58.9 Irritable bowel syndrome, unspecified; E03.9 Hypothyroidism, unspecified; Z79.01 Long term (current) use of anticoagulants; Z79.890 Hormone replacement therapy; Z79.899 Other long term (current) drug therapy; R06.02 Shortness of breath
CPT/HCPCS: 36415; 71045; 71275; 80048; 80053; 80061; 80076; 82728; 83615; 83735; 83880; 84145; 84439; 84443; 84484; 85025; 85379; 86140; 87070; 87205; 87426; 87449; 87633; 93005; 96361; 96372; 96374; 96375; 96376; 99218; 99251; 99285; J7030; Q9967; A4216; G0378; G0463; J1940

== ENCOUNTER → 2022-01-22 | Outpatient (CLI) | payer MEDICARE, MEDICAID, SELFPAY ==
--- NOTE | 2022-01-22 13:16 | EKG12_ITS ---
Test Reason : PALPS Blood Pressure : / mmHG Vent. Rate : 094 BPM Atrial Rate : 094 BPM P-R Int : 152 ms QRS Dur : 080 ms QT Int : 366 ms P-R-T Axes : 047 -27 031 degrees QTc Int : 457 ms Normal sinus rhythm Normal ECG Confirmed by TUTU ROMAN, KUSHAL ([id number]), photo editor DARIN BALES ([id number]) on 01/23/2022 11:48:59 AM Referred By: JEANA HAWKINS Confirmed By:KUSHAL CAM MD
== END | disposition home or self-care (01) ==
LOC: PSN 13:15
PROVIDERS: Visit Provider Nurse Practitioner Adult Health
DX: R00.2 Palpitations (principal)
CPT/HCPCS: 93005

== ENCOUNTER 2022-06-04 13:02 | Observation (INO) | payer MEDICARE, MEDICAID, SELFPAY ==
[2022-06-04] VITALS (11 sets, daily range): BP systolic 124–145; BP diastolic 58–86; PULSE 65–135; RESP 18–20; TEMP 36.7–37.1; O2SAT 98–100; BMI 26.8; BMI 26.4
--- NOTE | 2022-06-04 13:07 | EKG12_ITS ---
Test Reason : PALPS Blood Pressure : / mmHG Vent. Rate : 126 BPM Atrial Rate : 126 BPM P-R Int : 156 ms QRS Dur : 076 ms QT Int : 294 ms P-R-T Axes : 056 -19 031 degrees QTc Int : 425 ms Sinus tachycardia Inferior infarct , age undetermined Abnormal ECG Confirmed by TUTU ROMAN, KUSHAL ([id number]), editorial specialist DARIN BALES ([id number]) on 06/06/2022 8:04:18 AM Referred By: MUSTAPHA Confirmed By:KUSHAL CAM MD
--- NOTE | 2022-06-04 14:39 | EDS_ITS ---
HPI History of Present Illness Chief Complaint: Palpitations Informant: patient Onset/Context/Timing Onset: Month(s) Current Severity: Mild Maximum Severity: Moderate Narrative Narrative: Patient presents with sensation of racing heart. She reportedly was diagnosed with A. fib a year ago after having COVID. She was on Eliquis and metoprolol for about a month, but never followed up for any refills of her prescriptions. She states the past 2 or 3 months has been having increased episodes of palpitations where she will feel that her heart starts racing very fast. She will get very weak and lightheaded. She does not believe she is completely passed out but come very close. [facility] Medical History Atrial fibrillation, new onset History of irritable colon Hypothyroidism Pneumonia due to 2019 novel coronavirus Home Medications ergocalciferol (vitamin D2) 1,250 mcg (50,000 unit) capsule (Vitamin D2) 2,000 unit PO DAILY supplement 03/11/18 [History Last Taken 06/08/21] krill 500 mg-omega-3 150 mg-dha 45 mg-epa 75 xl-[id number]-xlbgc capsule (krill oil) 1 ea PO DAILY supplement 03/11/18 [History Last Taken 06/08/21] levothyroxine 50 mcg tablet 75 mcg PO DAILY thyroid 03/11/18 [History Last Taken 06/09/21] sennosides 8.6 mg tablet (Senokot) 17.2 mg PO QHS constipation 06/09/21 [History Last Taken 06/08/21] lisinopril 2.5 mg tablet 2.5 mg PO DAILY 06/04/22 [History Last Taken Unknown] Allergy/AdvReac Type Severity Reaction Status Date / Time diphenhydramine HCl Allergy Anaphylaxis Verified 06/04/22 13:03 [From Benadryl] Penicillins [PCN] Allergy Other Verified 06/04/22 13:03 morphine AdvReac Other Verified 06/04/22 13:03 Family History Father Hypertension COPD (chronic obstructive pulmonary disease) Surgical History H/O unilateral salpingectomy History of unilateral oophorectomy S/P appendectomy S/P cholecystectomy Social History household members: spouse Smoking Status: Never smoker alcohol intake: never substance use type: does not use ROS ROS ED Constitutional Constitutional ED: Denies chills or fever(s) Eyes Eyes: Denies change in vision or discharge from eye(s) ENT ENT ED: Denies discharge from eye(s), rhinorrhea or sore throat Cardiovascular Cardiovascular: Reports palpitations and racing heartbeat; Denies chest pain Respiratory/Chest Respiratory/Chest: Denies cough or dyspnea Gastrointestinal Gastrointestinal: Denies abdominal pain, diarrhea, nausea or vomiting Genitourinary Genitourinary ED: Denies difficulty urinating or dysuria Musculoskeletal Musculoskeletal: Denies back pain or extremity pain Integumentary Denies Abrasions or rash Neurologic Neurologic: Reports weakness; Denies headache(s) Psychiatric Psychiatric: Denies anxiety or depression Allergic/Immunologic Allergic/Immunologic ED: Denies lip swelling or urticaria EXAM Physical Exam Const Vital Signs: 06/04/22 13:03 06/04/22 14:39 Temperature 98.6 F Temperature Source Temporal Pulse Rate 135 H 103 H Respiratory Rate 18 18 Blood Pressure 128/76 H 134/83 H Blood Pressure Mean 93 100 Pulse Ox 99 99 Oxygen Delivery Method Room Air Room Air Positive well nourished and well developed General Appearance ED: well developed HEENT Reports normocephalic and head/scalp atraumatic Eyes PERRL and EOMs intact bilaterally Neck supple Chest Wall inspection of chest normal and palpation of chest normal Resp normal respiratory effort and clear to auscultation bilaterally Cardio regular rhythm Rate: tachycardic GI normal to inspection, nondistended, normoactive bowel sounds Palpation: soft Extremity normal to inspection Neuro oriented x3 and no sensory deficits noted Sensorium / Orientation: alert Motor Exam: strength 5/5 throughout Psych mental status grossly normal Skin no rashes or lesions noted MDM MDM MDM Narrative Medical decision making narrative: Patient is placed on threat monitoring analyst. IV fluids given. EKG, chest x-ray, lab work ordered. Lab Data Attestation: I reviewed the patient's lab results. Labs: Laboratory Results - last 24 hr 06/04/22 06/04/22 06/04/22 14:24 14:24 14:24 WBC 9.8 RBC 4.72 Hgb 14.1 Hct 44.3 MCV 93.9 MCH 29.9 MCHC 31.8 L RDW Std Deviation 44.7 H RDW Coeff of Rea 13.0 Plt Count 389 MPV 9.5 Immature Gran % (Auto) 0.200 Neut % (Auto) 69.4 Lymph % (Auto) 21.2 Treasure % (Auto) 8.0 Eos % (Auto) 0.9 Baso % (Auto) 0.3 Absolute Neuts (auto) 6.8 Absolute Lymphs (auto) 2.07 Nucleated RBC % 0 D-Dimer Quant (PE/DVT) < 0.27 L Sodium 141 Potassium 3.8 Chloride 107 Carbon Dioxide 27.0 Anion Gap 7 BUN 14 Creatinine 0.76 Estim Creat Clear Calc 38.37 Est GFR (MDRD) Af Amer 96 Est GFR (MDRD) Non-Af 79 BUN/Creatinine Ratio 18.3 Glucose 125 H Calcium 10.1 Troponin I High Sens 10 TSH 3.38 Radiography Chest X-Ray - ED: 1 View, Read by ED Physician, Normal, Heart, Lungs and Mediastinum Diagnostic Testing: Clinical Impression(s) from Imaging Studies Chest X-Ray 06/04/22 14:40 IMPRESSION: Hyperinflation. The lungs are clear. Electronically Signed: Grabiel Lange MD at 15:21 EDT , EKG Initial EKG: Attestation: I personally reviewed and interpreted this EKG as follows: Interpretation: Sinus Tachycardia (Sinus tach at 126 with no acute ischemia.) Treatment and Re-Evaluation Narrative: Patient is had no significant arrhythmias on threat monitoring analyst. Heart rate is now 90. CBC is unremarkable. Chemistry studies normal with normal renal function. D-dimer and troponin are both normal. TSH is normal. With patient having recurrent episodes and near syncopal episodes I do feel she should be observed overnight for cardiac monitoring and further work-up. I will speak with the hospitalist. Discharge Plan Triage Chief Complaint: Palpitations ED Provider: Olga Duenas Dx/Rx/DC Orders Clinical Impression: Palpitations, Near syncope Prescriptions: No Action levothyroxine 50 MCG tablet 75 mcg PO DAILY ergocalciferol (vitamin D2) [Vitamin D2] 50,000 UNIT capsule 2,000 unit PO DAILY krill oil 1 EACH capsule 1 ea PO DAILY sennosides [Senokot] 8.6 mg Tablet 17.2 mg PO QHS lisinopril 2.5 mg tablet 2.5 mg PO DAILY Label Comments: TAKE 1 TABLET BY MOUTH ONCE DAILY Primary Care Provider: [facility] Anay Ortiz Referrals: [facility] Anay Ortiz [Primary Care Provider] - Disposition Disposition: Acute Care Hospital [facility]
--- NOTE | 2022-06-04 14:40 | RAD_ITS ---
STUDY: X-RAY CHEST REASON FOR EXAM: Female, 71 years old. Chest pain. TECHNIQUE: Single AP portable view of the chest. COMPARISON: Comparison is made with prior study 06/09/2021. FINDINGS: EKG electrodes are seen. The lungs are clear and expanded. There is no demonstrated pleural abnormality. Normal size heart. Normal mediastinum and sophie. Normal visualized pulmonary arteries. There is atherosclerotic calcification of the aortic arch with tortuosity. Normal visualized thoracic spine. Normal visualized ribs, clavicles, and shoulders. There is no demonstrated abnormality of the visualized soft tissue structures of the upper abdomen. RAD/Chest 1 View (Portable) IMPRESSION: Hyperinflation. The lungs are clear. Electronically Signed: rGabiel Lange MD at 15:21 EDT ,
[2022-06-04 14:49] LABS: Absolute Lymphocyte Count 2.07 X10^3/uL (0.83-4.51); Absolute Neutrophil Count 6.8 X10^3/uL (2.0-7.7); Basophil# 0.03 X10^3/uL; Basophil% 0.3 % (0-1); Eosinophil# 0.09 X10^3/uL; Eosinophils% 0.9 % (0-5); Hematocrit 44.3 % (37-47); Hemoglobin 14.1 g/dL (12.0-15.0); Lymphocyte # 2.07 X10^3/ul (0.83-4.51); Lymphocyte % 21.2 % (19-41); Mean Corp Hgb Conc 31.8 g/dL (32-36); Mean Corpuscular Hgb 29.9 pg (27.0-32.0); Mean Corpuscular Volume 93.9 fL (81-99); Mean Platelet Vol. 9.5 fl (6.2-12.0); Monocyte# 0.78 X10^3/uL; NRBC Flagged by Analyzer 0 % (0-5); Neutrophil # 6.79 X10^3/uL (2.7-7.7); Neutrophil % 69.4 % (47-70); Platelet Count 389 K/mm3 (150-450); RBC Distribution Width SD 44.7 fl (35.1-43.9); Red Blood Count 4.72 M/mm3 (4.2-5.4); White Blood Count 9.8 K/mm3 (4.4-11.0)
[2022-06-04] MEDS: 0.9% Normal Saline 1,000 ML 1000 ML IV (14:59)
[2022-06-04 15:06] LABS: D-Dimer Quantitative (DVT/PE) < 0.27 FEU/ug/m (0.27-0.49)
[2022-06-04 15:13] LABS: Anion Gap 7 (5-15); BUN 14 mg/dL (7-18); BUN/Creat Ratio 18.3 RATIO (10-20); Calcium,Total 10.1 mg/dL (8.5-10.1); Chloride 107 mmol/L (98-107); Creatinine, Serum 0.76 mg/dL (0.55-1.02); EST Glomerular Filtration Rate 79 mL/min (>60); Est Glom Filt Rate - Afr Amer 96 mL/min (>60); Estimated Creatinine Clearance 38.37 ml/min; Glucose 125 mg/dL (74-106); Potassium 3.8 mmol/L (3.5-5.1); Sodium Level 141 mmol/L (136-145); Thyroid Stim Hormone (TSH) 3.38 uIU/mL (0.358-3.74); Troponin-I HS 10 pg/mL (3.0-54.0)
--- NOTE | 2022-06-04 15:49 | PCM.HP.STD ---
HPI - General General Date of Admission: 06/04/22 Date of Service: 06/04/22 Chief Complaint: Near syncope, racing heart. HPI Narrative The patient is a 71 y/o F w/ PMHx: PAF, Hypothyroidism, HTN who presents to the [facility] ED on 06/04/22 with history of sensation of racing heart with diagnosis of paroxysmal atrial fibrillation approximately 1 year prior following COVID illness with initiation at that time of both Eliquis and metoprolol which she took for approximately 1 month but never followed up therefore she is been off of this medication since then and over the last 2 to 3 months she has been having increased episodes of transient palpitations with associated weakness and lightheadedness with no specific syncopal events but near syncopal type sensations occurring on day of presentation prompting eventual ED evaluation. She denies any associated chest pain or any certain full syncopal events. She denies any exertional dyspnea. She does report that the racing heart/palpitations do tend to happen when she is up and moving/active. Work-up in the ED included T98.6, heart rate initially 135 with most recent repeat 103, BP 120/76, respiratory rate 18, 99% on room air, CBC with WC 9.8, hemoglobin 14.1, platelet 389 without marked shift, D-dimer less than 0.27, BMP unremarkable aside glucose 125, TSH 3.38, troponin 10, chest x-ray with hyperinflation otherwise no acute cardiopulmonary findings, EKG with sinus tachycardia with no acute evidence of ischemia. In the ED patient ministered normal saline bolus. [facility] Medical History (Updated 06/04/22 @ 17:[address] Edna Traylor MD) HTN (hypertension) Hypothyroidism IBS (irritable colon syndrome) PAF (paroxysmal atrial fibrillation) Pneumonia due to 2019 novel coronavirus Home Medications krill 500 mg-omega-3 150 mg-dha 45 mg-epa 75 [id number]-[id number] capsule (krill oil) 1 ea PO DAILY supplement 03/11/18 [History Last Taken 06/04/22] sennosides 8.6 mg tablet (Senokot) 17.2 mg PO QHS constipation 06/09/21 [History Last Taken 06/03/22] aspirin 81 mg tablet,delayed release 81 mg PO DAILY 06/04/22 [History Last Taken 06/04/22] cholecalciferol (vitamin D3) 50 mcg (2,000 unit) capsule (Vitamin D3) 50 mcg PO DAILY 06/04/22 [History Last Taken 06/04/22] ibuprofen 200 mg tablet 200 - 400 mg PO DAILY PRN PRN Headache 06/04/22 [History Last Taken 06/03/22] levothyroxine 75 mcg tablet 75 mcg PO DAILY thyroid 06/04/22 [History Last Taken 06/04/22] lisinopril 2.5 mg tablet 2.5 mg PO DAILY bp 06/04/22 [History Last Taken 06/04/22] sodium chloride 0.65 % nasal spray aerosol (Saline Nasal) 2 spray intranasal TID PRN nasal dryness 06/04/22 [History Last Taken 06/03/22] Allergy/AdvReac Type Severity Reaction Status Date / Time diphenhydramine HCl Allergy Anaphylaxis Verified 06/04/22 13:03 [From Benadryl] Penicillins [PCN] Allergy Other Verified 06/04/22 13:03 morphine AdvReac Other Verified 06/04/22 13:03 Family History Father Hypertension COPD (chronic obstructive pulmonary disease) other (Denies any marked maternal family history including HD, DM, CA.) Surgical History H/O unilateral salpingectomy History of unilateral oophorectomy S/P appendectomy S/P cholecystectomy Social History household members: spouse Smoking Status: Never smoker alcohol intake: never substance use type: does not use ROS ROS Narrative Admission Review of Systems: CONSTITUTIONAL: No weight loss, fever, chills, + weakness or fatigue. HEENT: + Lightheadedness/dizziness. Eyes: No visual loss, blurred vision, double vision or yellow sclerae. Ears, Nose, Throat: No hearing loss, sneezing, congestion, runny nose or sore throat. SKIN: No rash or itching, lesions, wounds. CARDIOVASCULAR: + Near syncope, lightheadedness, dizziness, racing heart/palpitations. No chest pain, chest pressure or chest discomfort, edema, orthopnea. RESPIRATORY: No shortness of breath, cough or sputum, wheezing, hemoptysis. GASTROINTESTINAL: No anorexia, nausea, vomiting or diarrhea, abdominal pain, melena, BRBPR. GENITOURINARY: No dysuria, frequency, urgency or retention. NEUROLOGICAL: + Near syncope, lightheadedness, dizziness. No headache, paralysis, ataxia, numbness or tingling in the extremities, focal weakness, change in bowel or bladder control, seizure. MUSCULOSKELETAL: No muscle, back pain, joint pain or stiffness. HEMATOLOGIC: No anemia, bleeding or bruising. LYMPHATICS: No enlarged nodes. No history of splenectomy. PSYCHIATRIC: No history of depression or anxiety. ENDOCRINOLOGIC: No reports of sweating, cold or heat intolerance. No polyuria or polydipsia. ALLERGIES: No history of asthma, hives, eczema or rhinitis. Vital Signs Vital Signs Vital Signs: 06/04/22 13:03 06/04/22 14:39 Temperature 98.6 F Temperature Source Temporal Pulse Rate 135 H 103 H Respiratory Rate 18 18 Blood Pressure 128/76 H 134/83 H Blood Pressure Mean 93 100 Pulse Ox 99 99 Oxygen Delivery Method Room Air Room Air Weight Weight: 141 lb 15.643 oz Body Mass Index (BMI) 26.8 Physical Exam Narrative Physical Examination: General: Awake, alert, oriented x 3 and cooperative, seated upright in ED bed, fatigued appearing, no acute distress. Skin: Normal color, normal turgor, no icterus, no cyanosis. HEENT: AT/NC, EOMI, PERRLA, mildly dry MM, no carotid bruits or JVD noted. Lungs: Mildly diminished, greater bases, appropriate effort, no rales, ronchi or wheezing. Heart: Mildly tachycardic with regular rhythm; no gallop, rub audible. Abdomen: Soft, NTTP, ND, distant normal BS, no HSM. Extremities: No cyanosis, clubbing, or edema. Neurological: Patient awake, alert, oriented as noted, cognitive function intact; pupils equally reactive to light and accommodation, cranial nerves grossly normal, moving all 4 extremities, strength preserved moves, no current lightheadedness or dizziness. Psychiatric: Affect appears fatigued otherwise normal, no acute evidence of depressive or anxiety feelings. Results Lab / Micro Data Result Diagrams: 06/04/22 14:24 06/04/22 14:24 Labs: Laboratory Results - last 24 hr 06/04/22 14:24: WBC 9.8, RBC 4.72, Hgb 14.1, Hct 44.3, MCV 93.9, MCH 29.9, MCHC 31.8 L, RDW Std Deviation 44.7 H, RDW Coeff of Rea 13.0, Plt Count 389, MPV 9.5, Immature Gran % (Auto) 0.200, Neut % (Auto) 69.4, Lymph % (Auto) 21.2, Graves % (Auto) 8.0, Eos % (Auto) 0.9, Baso % (Auto) 0.3, Absolute Neuts (auto) 6.8, Absolute Lymphs (auto) 2.07, Nucleated RBC % 0 06/04/22 14:24: D-Dimer Quant (PE/DVT) < 0.27 L 06/04/22 14:24: Sodium 141, Potassium 3.8, Chloride 107, Carbon Dioxide 27.0, Anion Gap 7, BUN 14, Creatinine 0.76, Estim Creat Clear Calc 38.37, Est GFR (MDRD) Af Amer 96, Est GFR (MDRD) Non-Af 79, BUN/Creatinine Ratio 18.3, Glucose 125 H, Calcium 10.1, Troponin I High Sens 10, TSH 3.38 Radiology Impression Chest X-Ray 06/04/22 14:40 IMPRESSION: Hyperinflation. The lungs are clear. Electronically Signed: Grabiel Lange MD at 15:21 EDT Reading Location ID and State: [address] [place] [id number] , Service support , Assessment & Plan Assessment/Plan (1) Near syncope: PLAN: Plan The patient is a 71 y/o F w/ PMHx: PAF, Hypothyroidism, HTN who presents to the [facility] ED on 06/04/22 with history of sensation of racing heart with diagnosis of paroxysmal atrial fibrillation approximately 1 year prior following COVID illness with initiation at that time of both Eliquis and metoprolol which she took for approximately 1 month but never followed up therefore she is been off of this medication since then and over the last 2 to 3 months she has been having increased episodes of transient palpitations with associated weakness and lightheadedness with no specific syncopal events but near syncopal type sensations occurring on day of presentation prompting eventual ED evaluation. #1. Palpitations with Near Syncopal Event w/ Hx PAF: EKG in ED w/ sinus tachycardia without evidence of acute ischemia, CXR w/ no acute cardiopulmonary findings, initial trop normal. Will admit to PCU, place on a monitored bed to assure no acute myocardial infarction with serial cardiac enzymes and EKGs. Will maintain on fall precautions, obtain admission orthostatic and AM orthostatic VS and increase hydration if appropriate. Will obtain ECHO as this was not previously obtained from review of [facility] records. TSH level normal. Magnesium level requested. Given history will restart on metoprolol and add back Eliquis to be cautious pending further work-up return. #2. Hyperglycemia: Admission glucose 125, mildly increased, repeat in a.m. and if further elevated may consider hemoglobin A1c. #3. Hypertension: Will add beta-rosa maria as had been prescribed previously with acute presentation as noted, holding low dose lisinopril given BP current trending and BB addition, may consider re-addition pending further trending, PRN hydralazine. #4. Hypothyroidism: We will continue patient home levothyroxine regimen, TSH level normal. #5. DVT prophylaxis: SCDs, will initiate Eliquis therapy as noted. Charges/Coding Visit Charges OBSV E&M: 27904 Initial observation care L3
[2022-06-04 16:19] LABS: Magnesium 2.2 mg/dL (1.6-2.6)
--- NOTE | 2022-06-04 17:11 | ECHOD_ITS ---
Reason For Study: PAF Procedure This was a 2D Doppler, Color Flow transthoracic echocardiogram. The exam was of adequate technical quality. Exam performed portable in patient room. Left Ventricle Normal LV size. Left ventricular systolic function is normal. The estimated ejection fraction is 65 %. No evidence for diastolic dysfunction. No regional wall motion abnormalities noted. Right Ventricle Normal RV size. Normal systolic function. Atria Normal left atrium. Normal right atrium. No doppler evidence for ASD. Mitral Valve There is no mitral annular calcification. Normal mitral valve. Trivial mitral valve insufficiency. Tricuspid Valve Normal tricuspid valve. Trivial tricuspid valve insufficiency. Right ventricular systolic pressure estimated to be 19 mmHg. Aortic Valve Trisinus/trileaflet aortic valve. Mild diffuse aortic valve thickening. Pulmonic Valve The pulmonic valve is not well visualized. Trivial pulmonic valve insufficiency. Great Vessels Normal sized aortic root. Pericardium/Pleural No pericardial effusion. Epicardial fat. MMode/2D Measurements & Calculations LVIDd: 4.2 cm IVSd: 0.74 cm Ao root diam: 3.3 cm LVIDs: 2.3 cm LVPWd: 0.83 cm RVDd: 3.2 cm FS: 44.7 % LAV(MOD-bp): 26.3 ml LVAd ap4: 22.0 cm2 SV(MOD-sp4): 39.1 ml LAV(MOD-bp) Indexed: 16.2 ml/m2 LVLd ap4: 6.8 cm LAV(MOD-sp2): 25.5 ml EDV(MOD-sp4): 57.5 ml LAV(MOD-sp4): 24.2 ml EDV(sp4-el): 59.9 ml LVAs ap4: 10.9 cm2 LVLs ap4: 5.6 cm ESV(MOD-sp4): 18.4 ml ESV(sp4-el): 17.8 ml EF(MOD-sp4): 68.1 % EF(sp4-el): 70.3 % SV(sp4-el): 42.2 ml LA A4 area: 11.5 cm2 LA dimension(2D): 3.4 cm RA A4 area: 9.7 cm2 Time Measurements MV dec time: 0.27 sec Doppler Measurements & Calculations MV E max chung: 75.0 cm/sec Lat Peak E' Chung: 11.6 cm/sec Med Peak E' Chung: 9.1 cm/sec MV A max chung: 92.4 cm/sec E/E' lat: 6.5 E/E' med: 8.2 MV E/A: 0.81 Ao V2 max: 118.5 cm/sec LV V1 max: 110.3 cm/sec PA V2 max: 111.8 cm/sec Ao max P.6 mmHg LV V1 max P.9 mmHg TR max chung: 202.1 cm/sec TR max P.3 mmHg ECHO/Echo Complete Interpretation Summary Left ventricular systolic function is normal. The estimated ejection fraction is 65 %. Trivial mitral valve insufficiency. Trivial tricuspid valve insufficiency. Mild diffuse aortic valve thickening. Trivial pulmonic valve insufficiency. Epicardial fat. Right ventricular systolic pressure estimated to be 19 mmHg. No evidence for diastolic dysfunction. Ordering Physician: Edna Traylor Referring Physician: HAL VELARDE Performed By: Mary Logan RDCS
[2022-06-04] MEDS: 0.9% Normal Saline 1,000 ML 100 ML IV (17:34)
[2022-06-04] MEDS: Metoprolol Tartrate 25 MG Tablet PO ×2 (17:43→21:50)
[2022-06-04 18:56] LABS: Troponin-I HS 44 pg/mL (3.0-54.0)
[2022-06-04 20:45] LABS: Troponin-I HS 52 pg/mL (3.0-54.0)
[2022-06-04] MEDS: APIXABAN 5 MG TABLET PO (21:49)
[2022-06-04] MEDS: 0.9% Saline Lock 10 ML Syringe IV (21:53)
[2022-06-05] VITALS (8 sets, daily range): BP systolic 136–140; BP diastolic 67–77; PULSE 60–92; RESP 16–18; TEMP 36.4–36.9; O2SAT 94–100
[2022-06-05] MEDS: 0.9% Normal Saline 1,000 ML 100 ML IV (03:28)
[2022-06-05 05:44] LABS: Absolute Lymphocyte Count 1.93 X10^3/uL (0.83-4.51); Absolute Neutrophil Count 4.6 X10^3/uL (2.0-7.7); Basophil# 0.04 X10^3/uL; Basophil% 0.5 % (0-1); Eosinophil# 0.23 X10^3/uL; Hematocrit 38.9 % (37-47); Hemoglobin 12.1 g/dL (12.0-15.0); Lymphocyte # 1.93 X10^3/ul (0.83-4.51); Lymphocyte % 25.2 % (19-41); Mean Corp Hgb Conc 31.1 g/dL (32-36); Mean Corpuscular Hgb 29.5 pg (27.0-32.0); Mean Corpuscular Volume 94.9 fL (81-99); Mean Platelet Vol. 9.5 fl (6.2-12.0); Monocyte# 0.78 X10^3/uL; Monocyte% 10.2 % (0-10); NRBC Flagged by Analyzer 0 % (0-5); Neutrophil # 4.64 X10^3/uL (2.7-7.7); Neutrophil % 60.7 % (47-70); Platelet Count 312 K/mm3 (150-450); RBC Distribution Width CV 13.1 % (11.6-14.6); RBC Distribution Width SD 45.2 fl (35.1-43.9); White Blood Count 7.7 K/mm3 (4.4-11.0)
[2022-06-05] MEDS: Levothyroxine 75 MCG Tablet PO (06:14)
[2022-06-05 06:32] LABS: ALB/GLOB Ratio 0.9 RATIO (0.9-2.4); AST(SGOT) 16 U/L (15-37); Alanine Aminotransfer ALT/SGPT 18 U/L (13-56); Albumin, Serum 2.9 g/dL (3.2-5.0); Alkaline Phosphatase 112 U/L (45-117); Anion Gap 4 (5-15); BUN 11 mg/dL (7-18); BUN/Creat Ratio 21.3 RATIO (10-20); Calcium,Total 8.6 mg/dL (8.5-10.1); Chloride 114 mmol/L (98-107); Creatinine, Serum 0.52 mg/dL (0.55-1.02); EST Glomerular Filtration Rate 124 mL/min (>60); Est Glom Filt Rate - Afr Amer 150 mL/min (>60); Estimated Creatinine Clearance 38.37 ml/min; Globulin 3.3 g/dL (2.2-4.2); Glucose 96 mg/dL (74-106); Potassium 3.9 mmol/L (3.5-5.1); Protein, Total 6.2 g/dL (6.4-8.2); Sodium Level 142 mmol/L (136-145)
[2022-06-05] MEDS: APIXABAN 5 MG TABLET PO (10:31)
[2022-06-05] MEDS: Metoprolol Tartrate 25 MG Tablet PO (10:31)
--- NOTE | 2022-06-05 12:05 | CHAPLAIN ---
Type of Pastoral Visit _x__ Initial Visit ___ Follow-up Visit ___ On-call Visit ___ General Patient Visit ___ Spiritual Assessment ___ Family Conference ___ Bereavement ___ Rapid Response ___ Code Blue ___ Other (describe below) Pastoral Care Referral From _x__ Patient ___ Family ___ Nurse ___ Physician ___ Learning Disabilities Teacher ___ Sample Dye Mixer ___ Other (describe below) Sacrament/Intervention _x__ Active listening ___ Anointing ___ Tenriism ___ Bereavement ___ Communion ___ Cheryl exploration ___ ___ Life review _x__ Prayer ___ Reconciliation ___ Sacrament of Sick ___ Supportive presence ___ Wedding ___ Other (describe below) Pastoral Comments patient speaks of reason to come to hospital and resulting tests; pt is waiting for answers and decision to go home; pt reports being hopeful that all is well and uses her cheryl in God to give assurances; spouse is also in room; couple have been involved in ministries and discuss some of their hopes for the future; prayer is welcomed
--- NOTE | 2022-06-05 13:03 | PN.HOSP_ITS ---
Subjective Subjective Patient seen and examined. She had no complaints today. She didnt have any dizziness, palpitations, nausea, vomiting or diarrhea. Review of systems is otherwise negative. Objective Data Objective Data Vital Signs: Vital Signs Temp Pulse Resp BP Pulse Ox O2 Del Method 97.6 F L 75 18 140/77 H 100 Room Air 06/05/22 09:45 06/05/22 11:00 06/05/22 09:45 06/05/22 10:31 06/05/22 09:45 06/05/22 10:27 Oxygen Delivery Method Room Air Weight: 140 lb 3.424 oz Body Mass Index (BMI) 26.4 Intake & Output: Intake and Output for Last 24 Hours 06/03/22 06/04/22 06/05/22 23:59 23:59 23:59 Intake Total 1300 / 2063.33 1603.33 / 1603.33 Balance 1300 / 3.33 1603.33 / 1603.33 Lab / Micro Data Result Diagrams: 06/05/22 05:31 06/05/22 05:31 Labs: Laboratory Results - last 24 hr 06/04/22 14:24: WBC 9.8, RBC 4.72, Hgb 14.1, Hct 44.3, MCV 93.9, MCH 29.9, MCHC 31.8 L, RDW Std Deviation 44.7 H, RDW Coeff of Rea 13.0, Plt Count 389, MPV 9.5, Immature Gran % (Auto) 0.200, Neut % (Auto) 69.4, Lymph % (Auto) 21.2, [place] % (Auto) 8.0, Eos % (Auto) 0.9, Baso % (Auto) 0.3, Absolute Neuts (auto) 6.8, Absolute Lymphs (auto) 2.07, Nucleated RBC % 0 06/04/22 14:24: D-Dimer Quant (PE/DVT) < 0.27 L 06/04/22 14:24: Sodium 141, Potassium 3.8, Chloride 107, Carbon Dioxide 27.0, Anion Gap 7, BUN 14, Creatinine 0.76, Estim Creat Clear Calc 38.37, Est GFR (MDRD) Af Amer 96, Est GFR (MDRD) Non-Af 79, BUN/Creatinine Ratio 18.3, Glucose 125 H, Calcium 10.1, Troponin I High Sens 10, TSH 3.38 06/04/22 14:24: Magnesium 2.2 06/04/22 18:13: Troponin I High Sens 44 06/04/22 20:17: Troponin I High Sens 52 06/05/22 05:31: WBC 7.7, RBC 4.10 L, Hgb 12.1, Hct 38.9, MCV 94.9, MCH 29.5, MCH C 31.1 L, RDW Std Deviation 45.2 H, RDW Coeff of Rea 13.1, Plt Count 312, MPV 9.5, Immature Gran % (Auto) 0.400, Neut % (Auto) 60.7, Lymph % (Auto) 25.2, [place] % (Auto) 10.2 H, Eos % (Auto) 3.0, Baso % (Auto) 0.5, Absolute Neuts (auto) 4.6, Absolute Lymphs (auto) 1.93, Nucleated RBC % 0 06/05/22 05:31: Sodium 142, Potassium 3.9, Chloride 114 H, Carbon Dioxide 24.0, Anion Gap 4 L, BUN 11, Creatinine 0.52 L, Estim Creat Clear Calc 38.37, Est GFR (MDRD) Af Amer 150, Est GFR (MDRD) Non-Af 124, BUN/Creatinine Ratio 21.3 H, Glucose 96, Calcium 8.6, Total Bilirubin 0.40, AST 16, ALT 18, Alkaline Phosphatase 112, Total Protein 6.2 L, Albumin 2.9 L, Globulin 3.3, Albumin/Globulin Ratio 0.9 Radiography Diagnostic Testing: Radiology Impression Chest X-Ray 06/04/22 14:40 IMPRESSION: Hyperinflation. The lungs are clear. Electronically Signed: Grabiel Lange MD at 15:21 EDT , Echocardiogram 06/04/22 17:11 Interpretation Summary Left ventricular systolic function is normal. The estimated ejection fraction is 65 %. Trivial mitral valve insufficiency. Trivial tricuspid valve insufficiency. Mild diffuse aortic valve thickening. Trivial pulmonic valve insufficiency. Epicardial fat. Right ventricular systolic pressure estimated to be 19 mmHg. No evidence for diastolic dysfunction. Ordering Physician: Edna Traylor Referring Physician: HAL VELARDE Performed By: Mary Logan RDCS Physical Exam Const alert, oriented x3 and no apparent distress HEENT head/scalp atraumatic, moist oral mucous membranes and oropharynx normal Head and Scalp: normocephalic Mouth: oral and palatal mucosa normal Eyes PERRL, EOMs intact bilaterally and conjunctivae normal Neck no lymphadenopathy and supple Resp normal respiratory effort, no retractions, no use of accessory muscles and clear to auscultation bilaterally Cardio regular rate, regular rhythm, S1 normal heart sound, S2 normal heart sound and no murmurs GI normal to inspection, nondistended, normoactive bowel sounds, soft to palpation, non-tender and non-distended Extremity normal to inspection, full ROM and no clubbing, cyanosis or edema Neuro oriented x3, CN's II-XII intact bilaterally, moves all extremities and no focal motor deficits Sensorium / Orientation: awake and alert Motor Exam: strength 5/5 throughout Psych affect normal Assessment & Plan Assessment/Plan (1) Palpitations: (2) Near syncope: PLAN: Plan #Near syncope with tachycardia * has history of paroxysmal afib * EKG showed sinus tachycardia, but no evidence of afib. * 2D echo:EF of 65% with no evidence of diastolic dysfunction and no regional wall motion abnormalities noted. * on metoprolol * also on eliquis due to history of afib. CHADVASC score is ~3 * #Hypertension: on metoprolol. Lisinopril held on admission. #Hypothyroidism: on synthroid. DVT prophylaxis: on eliquis Charges/Coding Visit Charges OBSV E&M: 65669 Subsequent observation care L2
--- NOTE | 2022-06-05 13:18 | CASEMGMT ---
Pt states no need for therapy and states no concerns for discharge. Adamaris REBOLLEDO CM
--- NOTE | 2022-06-05 13:19 | DS.PCM_ITS ---
Providers Date of Admission: 06/04/22 Date of Discharge: 06/05/22 Primary Care Physician: Anay [facility] Reason For Visit: NEAR SYNCOPE Diagnosis Discharge Diagnosis (1) Palpitations: Status: Acute Code(s): R00.2 - Palpitations (2) Near syncope: Status: Acute Code(s): R55 - Syncope and collapse Plan #Near syncope with tachycardia * has history of paroxysmal afib * EKG showed sinus tachycardia, but no evidence of afib. * 2D echo:EF of 65% with no evidence of diastolic dysfunction and no regional wall motion abnormalities noted. * on metoprolol * also on eliquis due to history of afib. CHADVASC score is ~3 * #Hypertension: on metoprolol. Lisinopril held on admission. #Hypothyroidism: on synthroid. DVT prophylaxis: on eliquis Medications at Discharge Home Medications krill 500 mg-omega-3 150 mg-dha 45 mg-epa 75 [id number]-[id number] capsule (krill oil) 1 ea PO DAILY supplement 03/11/18 sennosides 8.6 mg tablet (Senokot) 17.2 mg PO QHS constipation 06/09/21 aspirin 81 mg tablet,delayed release 81 mg PO DAILY 06/04/22 cholecalciferol (vitamin D3) 50 mcg (2,000 unit) capsule (Vitamin D3) 50 mcg PO DAILY 06/04/22 levothyroxine 75 mcg tablet 75 mcg PO DAILY thyroid 06/04/22 lisinopril 2.5 mg tablet 2.5 mg PO DAILY bp 06/04/22 sodium chloride 0.65 % nasal spray aerosol (Saline Nasal) 2 spray intranasal TID PRN nasal dryness 06/04/22 apixaban 5 mg tablet (Eliquis) 5 mg PO BID #60 tabs 06/05/22 metoprolol tartrate 25 mg tablet 25 mg PO BID #60 tabs 06/05/22 Hospital Course Operations None Procedures 2-D Echocardiogram Summary of Care Provided Minutes Spent on Discharge: 40 Hospital Course: Patient is a 71-year-old female with past medical history as outlined was admitted through the ED on 06/04/2022 with a complaint of racing heart. She had been diagnosed with A. fib about a year prior after having COVID. She was placed on Eliquis and metoprolol for about a month but never followed up. She took the medications for just about a month. She has been having increasing episodes of palpitations over the past 2 or 3 months with associated heart racin g and dizziness and lightheadedness. She nearly passed out and so she decided to come into the ED. CBC and BMP are unremarkable and TSH was within normal limits. Initial troponin was negative and remained negative when cycled. EKG showed sinus tachycardia with heart rate of 126. D-dimer also was within normal limits. She was admitted to be managed for near syncope thought to be due to paroxysmal A. fib. She had 2D echo which showed EF of 65% and no evidence of diastolic dysfunction with no regional wall motion abnormalities seen. She was started on metoprolol and placed on eliquis o/a of previous history of afib with CHADVASC score of ~ 3. She is to follow up with her PCP and cardiology within 1- 2 weeks Patient seen and examined prior to discharge. She felt much better and had no active complaints. She worked well with therapy. Review of systems otherwise negative. Labs and vitals reviewed. Home medication reviewed and reconciled. Physical Exam Const alert, oriented x3 and no apparent distress General Appearance: cooperative, comfortable and well kempt Orientation / Consciousness: awake and oriented to person Exam Limitations: no limitations HEENT normocephalic, head/scalp atraumatic, hearing grossly normal bilaterally and moist oral mucous membranes Mouth: oral and palatal mucosa normal Eyes PERRL, EOMs intact bilaterally and conjunctivae normal Neck no lymphadenopathy and supple Resp normal respiratory effort, no retractions, no use of accessory muscles and clear to auscultation bilaterally Cardio regular rate, regular rhythm, S1 normal heart sound, S2 normal heart sound and no murmurs GI normal to inspection, nondistended, normoactive bowel sounds, soft to palpation, non-tender and non-distended Extremity normal to inspection and no clubbing, cyanosis or edema Skin no rashes or lesions noted and no wounds Neuro oriented x3, CN's II-XII intact bilaterally, moves all extremities and no focal motor deficits Sensorium / Orientation: awake and alert Speech: speech normal Motor Exam: strength 5/5 throughout Psych affect normal Weight / BMI Weight Weight: 140 lb 3.424 oz Body Mass Index (BMI) 26.4 ABG / Lab / Microbiology Data Result Diagrams: 06/05/22 05:31 06/05/22 05:31 Laboratory: Laboratory Results - last 24 hr 06/04/22 14:24: WBC 9.8, RBC 4.72, Hgb 14.1, Hct 44.3, MCV 93.9, MCH 29.9, MCHC 31.8 L, RDW Std Deviation 44.7 H, RDW Coeff of Rea 13.0, Plt Count 389, MPV 9.5, Immature Gran % (Auto) 0.200, Neut % (Auto) 69.4, Lymph % (Auto) 21.2, [place] % (Auto) 8.0, Eos % (Auto) 0.9, Baso % (Auto) 0.3, Absolute Neuts (auto) 6.8, Absolute Lymphs (auto) 2.07, Nucleated RBC % 0 06/04/22 14:24: D-Dimer Quant (PE/DVT) < 0.27 L 06/04/22 14:24: Sodium 141, Potassium 3.8, Chloride 107, Carbon Dioxide 27.0, Anion Gap 7, BUN 14, Creatinine 0.76, Estim Creat Clear Calc 38.37, Est GFR (MDRD) Af Amer 96, Est GFR (MDRD) Non-Af 79, BUN/Creatinine Ratio 18.3, Glucose 125 H, Calcium 10.1, Troponin I High Sens 10, TSH 3.38 06/04/22 14:24: Magnesium 2.2 06/04/22 18:13: Troponin I High Sens 44 06/04/22 20:17: Troponin I High Sens 52 06/05/22 05:31: WBC 7.7, RBC 4.10 L, Hgb 12.1, Hct 38.9, MCV 94.9, MCH 29.5, MCHC 31.1 L, RDW Std Deviation 45.2 H, RDW Coeff of Rea 13.1, Plt Count 312, MPV 9.5, Immature Gran % (Auto) 0.400, Neut % (Auto) 60.7, Lymph % (Auto) 25.2, [place] % (Auto) 10.2 H, Eos % (Auto) 3.0, Baso % (Auto) 0.5, Absolute Neuts (auto) 4.6, Absolute Lymphs (auto) 1.93, Nucleated RBC % 0 06/05/22 05:31: Sodium 142, Potassium 3.9, Chloride 114 H, Carbon Dioxide 24.0, Anion Gap 4 L, BUN 11, Creatinine 0.52 L, Estim Creat Clear Calc 38.37, Est GFR (MDRD) Af Amer 150, Est GFR (MDRD) Non-Af 124, BUN/Creatinine Ratio 21.3 H, Glucose 96, Calcium 8.6, Total Bilirubin 0.40, AST 16, ALT 18, Alkaline Phosphatase 112, Total Protein 6.2 L, Albumin 2.9 L, Globulin 3.3, Albumin/Globulin Ratio 0.9 Radiography Diagnostic Testing: Radiology Impression Chest X-Ray 06/04/22 14:40 IMPRESSION: Hyperinflation. The lungs are clear. Electronically Signed: Grabiel Lange MD at 15:21 EDT , Echocardiogram 06/04/22 17:11 Interpretation Summary Left ventricular systolic function is normal. The estimated ejection fraction is 65 %. Trivial mitral valve insufficiency. Trivial tricuspid valve insufficiency. Mild diffuse aortic valve thickening. Trivial pulmonic valve insufficiency. Epicardial fat. Right ventricular systolic pressure estimated to be 19 mmHg. No evidence for diastolic dysfunction. Ordering Physician: Edna Traylor Referring Physician: ANAY VELARDE Performed By: Mary Logan, MELISSA D/C Instructions Discharge Diet: Low fat / Low cholesterol Discharge Activity: Return to Normal Activity Weight Bearing Status: Weight bearing as tolerated Call your doctor if you observe: Fever of 101 or Higher, Shortness of breath, Dizziness, Chest pain and Increased palpitations (irregular heartbeat) Meaningful Use Info Meaningful Use Diagnoses (Choose all that apply): None applicable Discharge Plan Admission Admit Date/Time: 06/04/22 15:53 Primary Reason for Your Visit: palpitations in a known patient with afib Attending Provider: Mamta Quiñones [facility] Providers: Edna Traylor Discharge Orders/Prescriptions Prescriptions: New Eliquis 5 mg Tablet 5 mg PO BID Qty: 60 1RF metoprolol tartrate 25 mg Tablet 25 mg PO BID Qty: 60 1RF Continued krill oil 1 EACH capsule 1 ea PO DAILY sennosides [Senokot] 8.6 mg Tablet 17.2 mg PO QHS lisinopril 2.5 mg tablet 2.5 mg PO DAILY Label Comments: TAKE 1 TABLET BY MOUTH ONCE DAILY levothyroxine 75 mcg tablet 75 mcg PO DAILY Saline Nasal 0.65 % Aerosol,[place] 2 spray INTRANASAL TID PRN (Reason: nasal dryness) cholecalciferol (vitamin D3) [Vitamin D3] 50 mcg (2,000 unit) Capsule 50 mcg PO DAILY Discontinued ibuprofen 200 mg Tablet 200 - 400 mg PO DAILY PRN PRN (Reason: Headache) No Action aspirin [Aspirin Low-Strength] 81 mg Tablet,Delayed Release (Dr/Ec) 81 mg PO DAILY [facility] - Within 2 Weeks Disposition Disposition (needs filled in before D/C Order can be placed): Home, Self Care Charges/Coding Visit Charges OBSV E&M: 83800 Observation care discharge
--- NOTE | 2022-06-05 14:02 | CASEMGMT ---
Pt to be sent home on Eliquis at discharge and med e-scribed to [facility]. Call to [facility] and per rep, pt has no co-pay for med at this time. Adamaris REBOLLEDO CM
--- NOTE | 2022-06-05 14:14 | PHA.DC.MR ---
Pharmacy Service has performed discharge medication reconciliation for this patient. The patient's discharge medication list was reviewed for discrepancies and discrepancies were resolved. 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 Was asked by RN CLEOPATRA Wong to relay to patient that there is no charge for the Eliquis, but was unable to. Home Medications krill 500 mg-omega-3 150 mg-dha 45 mg-epa 75 [id number] capsule (krill oil) 1 ea PO DAILY supplement 03/11/18 sennosides 8.6 mg tablet (Senokot) 17.2 mg PO QHS constipation 06/09/21 aspirin 81 mg tablet,delayed release 81 mg PO DAILY 06/04/22 cholecalciferol (vitamin D3) 50 mcg (2,000 unit) capsule (Vitamin D3) 50 mcg PO DAILY 06/04/22 levothyroxine 75 mcg tablet 75 mcg PO DAILY thyroid 06/04/22 lisinopril 2.5 mg tablet 2.5 mg PO DAILY bp 06/04/22 sodium chloride 0.65 % nasal spray aerosol (Saline Nasal) 2 spray intranasal TID PRN nasal dryness 06/04/22 apixaban 5 mg tablet (Eliquis) 5 mg PO BID #60 tabs 06/05/22 metoprolol tartrate 25 mg tablet 25 mg PO BID #60 tabs 06/05/22
== END 2022-06-05 13:42 | disposition home or self-care (01) ==
LOC: ED 15:30 → PCU 16:36
PROVIDERS: Admitting Provider Family Medicine; Emergency Provider Emergency Medicine; Visit Provider Student in an Organized Health Care Education/Training Program
DX: R55 Syncope and collapse (principal); I48.0 Paroxysmal atrial fibrillation; Z79.82 Long term (current) use of aspirin; Z86.16 Personal history of COVID-19; I10 Essential (primary) hypertension; E03.9 Hypothyroidism, unspecified; Z79.899 Other long term (current) drug therapy; Z79.890 Hormone replacement therapy; R73.9 Hyperglycemia, unspecified; Z79.01 Long term (current) use of anticoagulants; I07.1 Rheumatic tricuspid insufficiency
CPT/HCPCS: 36415; 71045; 80048; 80053; 83735; 84443; 84484; 85025; 85379; 93005; 93306; 96360; 96361; 99218; 99251; 99285; J7030; A4216; G0378; G0463

== ENCOUNTER 2022-09-23 11:50 | Emergency (ER) | payer MEDICARE, MEDICAID, SELFPAY ==
[2022-09-23 11:52] VITALS: BP 146/81; PULSE 82; RESP 17; TEMP 36.7; O2SAT 100; BMI 29.3
--- NOTE | 2022-09-23 12:14 | EDS_ITS ---
HPI HPI - GI History of Present Illness Chief Complaint: GI Bleed Detail of Chief Complaint: Bright red blood per rectum with bowel movement Informant: patient and spouse/S.O. Abdominal Pain/Flank Pain Onset: Days (3 to 4 days) Context: Sudden Onset Timing: Intermittent Quality: - (No pain) Location: - (Per rectum) Current Severity: Moderate Maximum Severity: Moderate Worsened by: - (Nothing) Relieved by: Nothing Nausea/Vomiting/Emesis GI Symptom: Negative for Nausea or Vomiting Diarrhea/Melena/Hematochezia GI Symptom: Positive for Hematochezia; Negative for Diarrhea or Melena Onset: Days Associated Symptoms Associated Symptoms: Negative for Dysuria, Frequency, Hematuria or Urgency Narrative Narrative: Patient is a 71-year-old woman with history of hypertension, hypothyroidism, atrial fibrillation on Eliquis who presents with bright red blood per rectum. She is on Eliquis due to the atrial fibs. This was confirmed reviewing prior records dated June 2021. EF was preserved. Patient states stool is brown. She has bright red blood noted on the toilet paper and with bowel movement. Blood is in the commode. She also states blood is on the stool. She denies orthostatic symptoms. She denies orthopnea, PND, chest discomfort. She denies dyspnea, dyspnea on exertion. There is no history of VTE. She denies leg pain, swelling discoloration. She is on meloxicam for arthritis. Jocelynn kaelyn was informed this increases her chance of GI bleed. She is seen by practitioner at the [facility] clinic. Patient also complains of bilateral shoulder neck pain. This is a chronic issue . Movement makes it worse. Patient has been applying heat. Prior similar symptoms: No Recent Illness/Hospitalization: No PFSH PFSH Medical History HTN (hypertension) Hypothyroidism IBS (irritable colon syndrome) PAF (paroxysmal atrial fibrillation) Palpitations Pneumonia due to 2019 novel coronavirus Home Medications krill 500 mg-omega-3 150 mg-dha 45 mg-epa 75 [id number] capsule (krill oil) 1 ea PO DAILY supplement 03/11/18 [History Last Taken 06/04/22] sennosides 8.6 mg tablet (Senokot) 17.2 mg PO QHS constipation 06/09/21 [History Last Taken 06/03/22] aspirin 81 mg tablet,delayed release 81 mg PO DAILY 06/04/22 [History Last Taken 06/04/22] cholecalciferol (vitamin D3) 50 mcg (2,000 unit) capsule (Vitamin D3) 50 mcg PO DAILY 06/04/22 [History Last Taken 06/04/22] levothyroxine 75 mcg tablet 75 mcg PO DAILY thyroid 06/04/22 [History Last Taken 06/04/22] lisinopril 2.5 mg tablet 2.5 mg PO DAILY bp 06/04/22 [History Last Taken 06/04/22] sodium chloride 0.65 % nasal spray aerosol (Saline Nasal) 2 spray intranasal TID PRN nasal dryness 06/04/22 [History Last Taken 06/03/22] apixaban 5 mg tablet (Eliquis) 5 mg PO BID #60 tabs 06/05/22 [Rx Last Taken Unknown] metoprolol tartrate 25 mg tablet 25 mg PO BID #60 tabs 06/05/22 [Rx Last Taken Unknown] hydrocodone-acetaminophen 5-325mg 5mg-325mg 1 tab PO Q6H PRN PRN Pain 3 days #10 TABLETS 09/23/22 [Rx Last Taken Unknown] Allergy/AdvReac Type Severity Reaction Status Date / Time diphenhydramine HCl Allergy Anaphylaxis Verified 09/23/22 11:51 [From Benadryl] Penicillins [PCN] Allergy Other Verified 09/23/22 11:51 morphine AdvReac Other Verified 09/23/22 11:51 Family History Father Hypertension COPD (chronic obstructive pulmonary disease) Surgical History H/O unilateral salpingectomy History of unilateral oophorectomy S/P appendectomy S/P cholecystectomy Social History household members: spouse Smoking Status: Never smoker alcohol intake: never substance use type: does not use ROS ROS ED Constitutional Constitutional ED: Denies chills, fever(s), subjective, sweats or weight loss ENT ENT ED: Denies ear pain, rhinorrhea or sore throat Cardiovascular Cardiovascular: Reports other Details: Denies orthostatic symptoms. ; Denies chest pain, orthopnea, palpitations, paroxysmal nocturnal dyspnea or racing heartbeat Respiratory/Chest Respiratory/Chest: Denies dyspnea on exertion, orthopnea or paroxysmal nocturnal dyspnea Gastrointestinal Gastrointestinal: Denies abdominal pain, diarrhea, melena, nausea or vomiting Genitourinary Genitourinary ED: Denies dysuria, hematuria or urinary frequency Musculoskeletal Musculoskeletal: Denies arthralgias, back pain, myalgias or neck pain Integumentary Reports other Details: Reports bruising easily. Neurologic Neurologic: Denies headache(s), paresthesias or weakness Psychiatric Psychiatric: Denies anxiety or depression Hematologic/Lymphatic Hematologic/Lymphatic: Reports easy bruising; Denies easy bleeding EXAM Physical Exam Const Vital Signs: 09/23/22 11:52 Temperature 98.1 F Temperature Source Temporal Pulse Rate 82 Respiratory Rate 17 Blood Pressure 146/81 H Blood Pressure Mean 102 Pulse Ox 100 Oxygen Delivery Method Room Air Positive well nourished and well developed Constitutional Narrative: Sarah patient probably due to hypothyroidism. General Appearance ED: well developed; Negative for pallor HEENT Reports moist mucous membranes HEENT Narrative: Ears normal. Nares patent. Uvula midline. Posterior Prantal erythema or exudate. normocephalic and atraumatic Eyes PERRL and EOMs intact bilaterally General Eye ED: Negative for pale conjunctiva or scleral icterus Neck no lymphadenopathy, supple and no JVD Neck Narrative: There is reproducible pain right and left trapezius area and right and left paracervical. This reproduces her chronic pain. Resp normal respiratory effort and clear to auscultation bilaterally Cardio regular rate, regular rhythm, S1 normal heart sound, S2 normal heart sound and no murmurs GI non-tender, non-distended and no masses GI Narrative: On rectal exam there is no evidence of external hemorrhoid. There is no fissures or fistulas noted. On digital exam there was no palpable mass. There was no tenderness. There was no fluctuance. Stool appeared brown. Auscultation: hypoactive bowel sounds Palpation: soft; Negative for hepatomegaly, splenomegaly, hernia, mass or pulsatile mass Back/Spine no CVA tenderness Extremity full ROM General Extremety ED: Negative for edema or tenderness General Extremity: Negative for edema Neuro CN's II-XII intact bilaterally, moves all extremities and no sensory deficits noted Sensorium / Orientation: alert Psych mental status grossly normal and thought process normal Skin no wounds General Skin Exam: Negative for jaundice or pallor MDM MDM MDM Narrative Medical decision making narrative: This patient is a 39 bright red blood with bowel movement on anticoagulant anoscopy was performed to confirm suspicion for hemorrhoids. If there is no evidence of hemorrhoids will need work-up for lower GI bleed. Doubt this to be an upper GI bleed since she is not hypotensive and stool is not black. Old records were reviewed. Patient was admitted on June 05, 2022 for syncope. There was no discernible cause. Admission prior was June 2021 for atrial fibs. She was placed on anticoagulant at that time. Procedures Other Procedures Procedure(s): Anoscopy was performed with patient is noted to have an external hemorrhoid at the 7:00 lithotomy position. Rectal mucosa appears normal. Stool is brown. There is no blood noted above the scope. There is no active bleeding noted at time of anoscopy. Discharge Plan Triage Chief Complaint: GI Bleed ED Provider: Kendell Chowdhury Dx/Rx/DC Orders Clinical Impression: External hemorrhoid, bleeding, Anticoagulant long-term use, History of atrial fibrillation, Chronic pain of both shoulders Instructions: ED Hemorrhoids Prescriptions: New hydrocodone-acetaminophen [hydrocodone-acetaminophen] 5-325 mg tablet 1 tab PO Q6H PRN PRN (Reason: Pain) 3 Days Qty: 10 0RF No Action krill oil 1 EACH capsule 1 ea PO DAILY sennosides [Senokot] 8.6 mg Tablet 17.2 mg PO QHS lisinopril 2.5 mg tablet 2.5 mg PO DAILY Label Comments: TAKE 1 TABLET BY MOUTH ONCE DAILY aspirin [Aspirin Low-Strength] 81 mg Tablet,Delayed Release (Dr/Ec) 81 mg PO DAILY levothyroxine 75 mcg tablet 75 mcg PO DAILY Saline Nasal 0.65 % Aerosol,[place] 2 spray INTRANASAL TID PRN (Reason: nasal dryness) cholecalciferol (vitamin D3) [Vitamin D3] 50 mcg (2,000 unit) Capsule 50 mcg PO DAILY Eliquis 5 mg Tablet 5 mg PO BID Qty: 60 1RF metoprolol tartrate 25 mg Tablet 25 mg PO BID Qty: 60 1RF Primary Care Provider: [facility] Anay Ortiz Referrals: [facility] Anay Ortiz [Primary Care Provider] - 3-5 Days Activity Restrictions/Additional Instructions: Will need to discuss with practitioner at [facility] use of meloxicam with anticoagulant. You are at increased risk for bleeding. Disposition Disposition: Home, Self Care
[2022-09-23 12:27] VITALS: RESP 16
== END 2022-09-23 12:50 | disposition home or self-care (01) ==
LOC: ED 12:30
PROVIDERS: Emergency Provider Emergency Medicine; Visit Provider Emergency Medicine
DX: K64.4 Residual hemorrhoidal skin tags (principal); I48.91 Unspecified atrial fibrillation; K92.2 Gastrointestinal hemorrhage, unspecified; M25.511 Pain in right shoulder; I10 Essential (primary) hypertension; M25.512 Pain in left shoulder; R10.9 Unspecified abdominal pain; Z79.01 Long term (current) use of anticoagulants; G89.29 Other chronic pain
CPT/HCPCS: 46600; 99282

== ENCOUNTER → 2022-10-22 | Outpatient (CLI) | payer MEDICARE, MEDICAID, SELFPAY ==
--- NOTE | 2022-10-22 13:27 | BD_ITS ---
STUDY: DUAL ENERGY X-RAY ABSORPTIOMETRY / DXA REASON FOR EXAM: Female, 71 years old. [id number] TECHNIQUE: Bone Mineral Density (BMD) measurements of lumbar spine and bilateral hips were obtained. COMPARISON: None. FINDINGS: Lumbar Spine (L1-L4): g/cm2 (0.713) / T-score (-3.0) / Z-score (-0.8) Findings are suggestive of osteoporosis with a high fracture risk. Left Femur Total: g/cm2 (0.630) / T-score (-2.6) / Z-score (-0.9) Left Femoral Neck: g/cm2 (0.458) / T-score (-3.5) / Z-score (-1.6) Right Femur Total: g/cm2 (0.628) / T-score (-2.6) / Z-score (-0.9) Right Femoral Neck: g/cm2 (0.511) / T-score (-3.0) / Z-score (-1.1) BD/Dexa Bone Density Study IMPRESSION: The patient is considered osteoporotic as outlined below according to World [place] Organization (WHO) criteria with a high fracture risk. Reference Information: The T-score is the number of standard deviations above or below the standard which is normal for young adults at their peak bone mineral density. The World Health Organization (WHO) interprets the T-scores as follows: Above -1 Normal bone density Between -1 and -2.5 Osteopenia Equal to / or below -2.5 Osteoporosis As a practical clinical guideline, osteopenia may be graded as follows: Mild -1 through -1.5 Moderate -1.6 through -2.0 Severe -2.1 through -2.4 The Z-score is the number of standard deviations above or below age-matched controls. A Z-score of less than -1.5 would be considered abnormal. References: 1. NIH Osteoporosis and Related Bone Diseases www osteo.org 2. International Society for Clinical Densitometry www iscd.org 3. National Osteoporosis Foundation www nof.org Electronically Signed: Grabiel Lange MD at 14:52 EST ,
== END | disposition home or self-care (01) ==
LOC: OPBD 13:17
PROVIDERS: Referring Provider Nurse Practitioner Family; Visit Provider Nurse Practitioner Family
DX: Z13.820 Encounter for screening for osteoporosis (principal); Z78.0 Asymptomatic menopausal state
CPT/HCPCS: 77080

== ENCOUNTER → 2022-11-14 | Outpatient (CLI) | payer MEDICARE, MEDICAID, SELFPAY ==
[2022-11-14 12:39] LABS: Calcium,Total 10.4 mg/dL (8.5-10.1); Free T3 2.3 pg/mL (2.18-3.98)
== END | disposition home or self-care (01) ==
LOC: LAB 11:47
PROVIDERS: Referring Provider Nurse Practitioner Family; Visit Provider Nurse Practitioner Family
DX: E83.52 Hypercalcemia (principal)
CPT/HCPCS: 36415; 82310; 84481

== ENCOUNTER → 2022-12-11 | Outpatient (CLI) | payer MEDICARE, MEDICAID, SELFPAY ==
[2022-12-11 13:31] LABS: Calcium,Total 10.5 mg/dL (8.5-10.1)
== END | disposition home or self-care (01) ==
LOC: LAB 11:27
PROVIDERS: PCP Nurse Practitioner Family; Referring Provider Internal Medicine Endocrinology, Diabetes & Metabolism; Visit Provider Internal Medicine Endocrinology, Diabetes & Metabolism
DX: E55.9 Vitamin D deficiency, unspecified (principal); E21.3 Hyperparathyroidism, unspecified
CPT/HCPCS: 36415; 82306; 82310

== ENCOUNTER → 2023-03-07 | Outpatient (CLI) | payer MEDICARE, MEDICAID, SELFPAY ==
--- NOTE | 2023-03-07 11:40 | RAD_ITS ---
STUDY: X-RAY - CERVICAL SPINE REASON FOR EXAM: Female, 72 years old. CERVICALGIA TECHNIQUE: 6 view(s) of the cervical spine were obtained. COMPARISON: None FINDINGS: There are degenerative changes of the anterior atlantoaxial articulation. Normal odontoid process. Normal cervical lordosis. There is multilevel degenerative change. There is disc space narrowing C4-C5 to greater degree C5-C6 and C6-C7. There is neural foraminal narrowing in the right greater than left neck soft tissues at the level of C5-C6 and C7. The soft tissue structures are unremarkable. RAD/Cerv Spine 4 or 5 Views IMPRESSION: Two-level degenerative change of the cervical spine. No visualized acute loss of height or alignment. Electronically Signed: Meena Luna MD at 15:16 EDT Reading Location ID and State: [facility] / [place] Tel , Service support ,
== END | disposition home or self-care (01) ==
LOC: RAD 11:33
PROVIDERS: PCP Nurse Practitioner Family; Referring Provider Nurse Practitioner Family; Visit Provider Nurse Practitioner Family
DX: M54.2 Cervicalgia (principal)
CPT/HCPCS: 72050

== ENCOUNTER → 2024-05-19 | Outpatient (CLI) | payer MEDICARE, MEDICAID, SELFPAY ==
[2024-05-19 12:58] LABS: Absolute Lymphocyte Count 2.22 X10^3/uL (0.83-4.51); Absolute Neutrophil Count 7.8 X10^3/uL (2.0-7.7); Basophil# 0.07 X10^3/uL; Basophil% 0.6 % (0-1); Eosinophil# 0.19 X10^3/uL; Eosinophils% 1.7 % (0-5); Hematocrit 42.9 % (37-47); Hemoglobin 13.3 g/dL (12.0-15.0); Lymphocyte # 2.22 X10^3/ul (0.83-4.51); Lymphocyte % 20.1 % (19-41); Mean Corpuscular Hgb 29.2 pg (27.0-32.0); Mean Corpuscular Volume 94.3 fL (81-99); Mean Platelet Vol. 10.7 fl (6.2-12.0); Monocyte# 0.75 X10^3/uL; Monocyte% 6.8 % (0-10); NRBC Flagged by Analyzer 0 % (0-5); Neutrophil # 7.77 X10^3/uL (2.7-7.7); Neutrophil % 70.3 % (47-70); Platelet Count 264 K/mm3 (150-450); RBC Distribution Width CV 13.1 % (11.6-14.6); RBC Distribution Width SD 44.9 fl (35.1-43.9); Red Blood Count 4.55 M/mm3 (4.2-5.4); Vitamin D,25 Hydroxy 60.8 ng/mL; White Blood Count 11.1 K/mm3 (4.4-11.0)
[2024-05-19 13:01] LABS: Hemoglobin A1c 6.6 % (3.8-5.6)
[2024-05-19 13:17] LABS: ALB/GLOB Ratio 0.8 RATIO (0.9-2.4); AST(SGOT) 20 U/L (15-37); Alanine Aminotransfer ALT/SGPT 30 U/L (13-56); Albumin, Serum 3.5 g/dL (3.2-5.0); Alkaline Phosphatase 129 U/L (45-117); Anion Gap 7 (5-15); BUN 14 mg/dL (7-18); BUN/Creat Ratio 17.2 RATIO (10-20); Calcium,Total 10.2 mg/dL (8.5-10.1); Chloride 105 mmol/L (98-107); Cholesterol 207 mg/dL (200); Creatinine, Serum 0.81 mg/dL (0.55-1.02); EST Glomerular Filtration Rate 73 mL/min (>60); Est Glom Filt Rate - Afr Amer 88 mL/min (>60); Globulin 4.4 g/dL (2.2-4.2); Glucose 151 mg/dL (74-106); High Density Lipoprotein 52 mg/dL; Potassium 3.7 mmol/L (3.5-5.1); Protein, Total 7.9 g/dL (6.4-8.2); Sodium Level 136 mmol/L (136-145); T4 Free Direct 1.17 ng/dL (0.76-1.46); Triglycerides 140 mg/dL; Very Low Density Lipoprotein 28 mg/dL (5-40)
== END | disposition home or self-care (01) ==
LOC: VSLAB 08:20
PROVIDERS: PCP Nurse Practitioner Family; Visit Provider Nurse Practitioner Family
DX: R73.03 Prediabetes (principal); I10 Essential (primary) hypertension; E03.9 Hypothyroidism, unspecified; Z13.220 Encounter for screening for lipoid disorders
CPT/HCPCS: 36415; 80053; 80061; 82306; 83036; 84439; 84443; 85025

== ENCOUNTER → 2024-07-01 | Outpatient (CLI) | payer MEDICARE, MEDICAID, SELFPAY | END | disposition home or self-care (01) | LOC: LABSPEC 12:06 | PROVIDERS: PCP Nurse Practitioner Family; Visit Provider Family Medicine | DX: R35.0 Frequency of micturition (principal) | CPT/HCPCS: 87086 ==

== ENCOUNTER → 2024-09-29 | Outpatient (CLI) | payer MEDICARE, MEDICAID, SELFPAY ==
[2024-09-29 13:39] LABS: Absolute Lymphocyte Count 2.28 X10^3/uL (0.83-4.51); Absolute Neutrophil Count 6.7 X10^3/uL (2.0-7.7); Basophil# 0.04 X10^3/uL; Basophil% 0.4 % (0-1); Eosinophil# 0.27 X10^3/uL; Eosinophils% 2.7 % (0-5); Hematocrit 41.8 % (37-47); Lymphocyte # 2.28 X10^3/ul (0.83-4.51); Lymphocyte % 22.6 % (19-41); Mean Corp Hgb Conc 31.1 g/dL (32-36); Mean Corpuscular Hgb 28.6 pg (27.0-32.0); Mean Corpuscular Volume 92.1 fL (81-99); Mean Platelet Vol. 10.2 fl (6.2-12.0); Monocyte# 0.75 X10^3/uL; Monocyte% 7.4 % (0-10); NRBC Flagged by Analyzer 0 % (0-5); Neutrophil # 6.71 X10^3/uL (2.7-7.7); Neutrophil % 66.4 % (47-70); Platelet Count 355 K/mm3 (150-450); RBC Distribution Width CV 13.2 % (11.6-14.6); RBC Distribution Width SD 44.1 fl (35.1-43.9); Red Blood Count 4.54 M/mm3 (4.2-5.4); White Blood Count 10.1 K/mm3 (4.4-11.0)
[2024-09-29 13:40] LABS: ALB/GLOB Ratio 0.8 RATIO (0.9-2.4); AST(SGOT) 17 U/L (15-37); Alanine Aminotransfer ALT/SGPT 24 U/L (13-56); Albumin, Serum 3.4 g/dL (3.2-5.0); Alkaline Phosphatase 124 U/L (45-117); Anion Gap 8 (5-15); BUN 13 mg/dL (7-18); BUN/Creat Ratio 19.1 RATIO (10-20); Calcium,Total 10.1 mg/dL (8.5-10.1); Chloride 106 mmol/L (98-107); Creatinine, Serum 0.68 mg/dL (0.55-1.02); EST Glomerular Filtration Rate 90 mL/min (>60); Est Glom Filt Rate - Afr Amer 108 mL/min (>60); Globulin 4.3 g/dL (2.2-4.2); Glucose 126 mg/dL (74-106); Potassium 4.1 mmol/L (3.5-5.1); Protein, Total 7.7 g/dL (6.4-8.2); Sodium Level 139 mmol/L (136-145); Thyroid Stim Hormone (TSH) 0.872 uIU/mL (0.358-3.740)
== END | disposition home or self-care (01) ==
LOC: VSLAB 09:31
PROVIDERS: PCP Nurse Practitioner Family; Visit Provider Nurse Practitioner Family
DX: I10 Essential (primary) hypertension (principal); E11.9 Type 2 diabetes mellitus without complications; E03.9 Hypothyroidism, unspecified
CPT/HCPCS: 36415; 80053; 82043; 84443; 85025

== ENCOUNTER → 2024-12-28 | Outpatient (CLI) | payer MEDICARE, MEDICAID, SELFPAY ==
[2024-12-28 12:51] LABS: Absolute Lymphocyte Count 2.08 X10^3/uL (0.83-4.51); Absolute Neutrophil Count 7.2 X10^3/uL (2.0-7.7); Basophil# 0.06 X10^3/uL; Basophil% 0.6 % (0-1); Eosinophil# 0.28 X10^3/uL; Eosinophils% 2.7 % (0-5); Hematocrit 41.9 % (37-47); Hemoglobin 13.3 g/dL (12.0-15.0); Lymphocyte # 2.08 X10^3/ul (0.83-4.51); Lymphocyte % 20.2 % (19-41); Mean Corp Hgb Conc 31.7 g/dL (32-36); Mean Corpuscular Hgb 29.4 pg (27.0-32.0); Mean Corpuscular Volume 92.7 fL (81-99); Mean Platelet Vol. 9.6 fl (6.2-12.0); Monocyte# 0.71 X10^3/uL; Monocyte% 6.9 % (0-10); NRBC Flagged by Analyzer 0 % (0-5); Neutrophil # 7.15 X10^3/uL (2.7-7.7); Neutrophil % 69.2 % (47-70); Platelet Count 384 K/mm3 (150-450); RBC Distribution Width SD 44.3 fl (35.1-43.9); Red Blood Count 4.52 M/mm3 (4.2-5.4); White Blood Count 10.3 K/mm3 (4.4-11.0)
[2024-12-28 13:29] LABS: ALB/GLOB Ratio 1.2 RATIO (0.9-2.4); AST(SGOT) 21 U/L (<=31); Alanine Aminotransfer ALT/SGPT 13 U/L (<=34); Albumin, Serum 4.1 g/dL (3.4-4.8); Alkaline Phosphatase 127 U/L (35-104); Anion Gap 11 (5-15); BUN 9 mg/dL (4-19); BUN/Creat Ratio 11.5 RATIO (10-20); Calcium,Total 10.4 mg/dL (7.6-11.0); Carbon Dioxide 24.2 mmol/L (21.0-32.0); Chloride 103 mmol/L (98-108); Creatinine, Serum 0.76 mg/dL (0.70-1.20); EST Glomerular Filtration Rate 81 (>60); Globulin 3.4 g/dL (2.2-4.2); Glucose 110 mg/dL (70-99); Potassium 4.4 mmol/L (3.3-5.1); Protein, Total 7.4 g/dL (5.9-8.4); Sodium Level 138 mmol/L (133-145); Total Bilirubin 0.32 mg/dL (0.00-1.30)
== END | disposition home or self-care (01) ==
LOC: VSLAB 09:30
PROVIDERS: PCP Nurse Practitioner Family; Visit Provider Nurse Practitioner Family
DX: I10 Essential (primary) hypertension (principal); E03.9 Hypothyroidism, unspecified
CPT/HCPCS: 36415; 80053; 84439; 84443; 85025

== ENCOUNTER → 2025-05-24 | Outpatient (CLI) | payer MEDICARE, MEDICAID, SELFPAY ==
[2025-05-24 12:49] LABS: Hematocrit 41.4 % (37-47); Hemoglobin 13.1 g/dL (12.0-15.0); Immature Granulocytes Count 0.040 X10^3/uL (0.0-0.0); Mean Corp Hgb Conc 31.6 g/dL (32-36); Mean Corpuscular Volume 94.1 fL (81-99); Mean Platelet Vol. 10.2 fl (6.2-12.0); NRBC Flagged by Analyzer 0 % (0-5); Platelet Count 346 K/mm3 (150-450); RBC Distribution Width CV 13.3 % (11.6-14.6); RBC Distribution Width SD 45.6 fl (35.1-43.9); Red Blood Count 4.40 M/mm3 (4.2-5.4); White Blood Count 8.3 K/mm3 (4.4-11.0)
[2025-05-24 13:35] LABS: AST(SGOT) 19 U/L (<=31); Alanine Aminotransfer ALT/SGPT 13 U/L (<=34); Albumin, Serum 4.2 g/dL (3.4-4.8); Alkaline Phosphatase 100 U/L (35-104); Anion Gap 10 (5-15); BUN 10 mg/dL (4-19); BUN/Creat Ratio 15.2 RATIO (10-20); Calcium,Total 10.5 mg/dL (7.6-11.0); Carbon Dioxide 26.3 mmol/L (21.0-32.0); Chloride 104 mmol/L (98-108); Globulin 2.9 g/dL (2.2-4.2); Glucose 96 mg/dL (70-99); Potassium 5.2 mmol/L (3.3-5.1); Vitamin D,25 Hydroxy 64.6 ng/mL (30-100)
== END | disposition home or self-care (01) ==
LOC: VSLAB 08:52
PROVIDERS: PCP Nurse Practitioner Family; Visit Provider Nurse Practitioner Family
DX: E11.9 Type 2 diabetes mellitus without complications (principal); E03.9 Hypothyroidism, unspecified; M81.0 Age-related osteoporosis without current pathological fracture
CPT/HCPCS: 36415; 80053; 82306; 84439; 84443; 85025